=== PATIENT | female | born 1955 ===

== ENCOUNTER 2017-09-28 10:43 | Emergency (ER) | payer MEDICAID ==
[2017-09-28 10:44] VITALS: BMI 32.7
[2017-09-28 10:57] VITALS: TEMP 97.7
--- NOTE | 2017-09-28 11:15 | ED PDOC ---
Arrival/HPI - General Historian: Patient - History of Present Illness Time/Duration: 4-6 hours Symptom Onset: Sudden Symptom Course: Unchanged Quality: Aching, Stabbing Context: Sitting - General Chief Complaint: Rib Injury Time Seen by Provider: 09/28/17 10:50 - History of Present Illness Narrative History of Present Illness (Text): 09/28/17 11:12 patient is a 62F with a PMH of DM and chronic pancreatitis who comes to the ED with a CC of hitting her right side on a bed rail. She was at home babysitting her nephew when she fell over the crib and hit her right side on the bed rail. She has been complaining of pain on her right chest wall since the incident. She also states that it hurts to take a deep breath. She is not complaining of any SOB however. She states it hurts with any type of movement including twisting, bending over or walking. The patient is also complaining of pain when she lays flat. Denies any fever, chills, nausea, vomiting. (Issa Vargas) Past Medical History - Tetanus Immunization Tetanus Immunization: Unknown - Cardiac Hx Cardiac Disorders: Yes Hx Hypertension: Yes - Pulmonary Hx Respiratory Disorders: Yes Hx Asthma: Yes - Neurological Hx Neurological Disorder: No - HEENT Hx HEENT Disorder: Yes Other/Comment: HX of Tonsillectomy - Renal Hx Renal Disorder: No - Endocrine/Metabolic Hx Endocrine Disorders: Yes Hx Diabetes Mellitus Type 2: Yes - Hematological/Oncological Hx Blood Disorders: No - Integumentary Hx Dermatological Disorder: No - Musculoskeletal/Rheumatological Hx Musculoskeletal Disorders: No - Gastrointestinal Hx Gastrointestinal Disorders: Yes Hx Gall Bladder Disease: Yes Hx Gastroesophageal Reflux: Yes Hx Pancreatitis: Yes - Genitourinary/Gynecological Hx Genitourinary Disorders: Yes Other/Comment: Ectopic 1985 - Psychiatric Hx Psychophysiologic Disorder: Yes Hx Depression: Yes Hx Substance Use: No - Surgical History Hx Appendectomy: Yes (1986) Hx Cholecystectomy: Yes (01/14/14) Hx Tonsillectomy: Yes Other/Comment: Tonsillectomy 1957, endoscopy: benign growth removed, bile duct stent 12/31/13 - Anesthesia Hx Anesthesia: Yes Hx Anesthesia Reactions: No Hx Malignant Hyperthermia: No - Suicidal Assessment Feels Threatened In Home Enviroment: No Family/Social History - Physician Review Nursing Documentation Reviewed: Yes Family/Social History: Unknown Family HX Smoking Status: Former Smoker Hx Alcohol Use: No Hx Substance Use: No Hx Substance Use Treatment: No Allergies/Home Meds Allergies/Adverse Reactions: Allergies penicillin V Allergy (Verified 09/28/17 10:48) RASH fluvastatin sodium [From Lescol] Adverse Reaction (Verified 09/28/17 10:48) PAIN Home Medications: Home Meds Medication Instructions Recorded Confirmed Albuterol Sulfate [Albuterol 0.09 mg IH Q6 PRN 12/10/11 09/28/17 Sulfate Hfa] Losartan/Hydrochlorothiazide 1 tab PO DAILY 12/29/13 09/28/17 [Hyzaar 100-25 Tablet] Albuterol HFA [Ventolin HFA 90 2 puff INH Q4 07/25/15 09/28/17 mcg/actuation (8 g)] Aspirin [Aspirin Chewable] 81 mg PO DAILY 07/25/15 09/28/17 Cyclobenzaprine [Flexeril] 5 mg PO BID PRN 07/25/15 09/28/17 Gabapentin [Neurontin] 100 mg PO TID 07/25/15 09/28/17 Insulin Detemir [Levemir] 40 units SC HS 07/25/15 09/28/17 Insulin Lispro [Humalog] 20 units SC TID 07/25/15 09/28/17 Meclizine [Meclizine*] 25 mg PO BID PRN 07/25/15 09/28/17 Omeprazole [Prilosec] 20 mg PO DAILY 07/25/15 09/28/17 Review of Systems - Review of Systems Constitutional: absent: Fevers Eyes: Normal ENT: Normal Respiratory: absent: SOB Gastrointestinal: Normal Genitourinary Female: Normal Musculoskeletal: Other (Pain over her right lower ribs) Skin: Normal Neurological: Normal Endocrine: Normal Hemo/Lymphatic: Normal Psychiatric: Normal Physical Exam Vital Signs Reviewed: Yes Temperature: Afebrile Blood Pressure: Normal Pulse: Regular Respiratory Rate: Normal Appearance: Positive for: Non-Toxic, Uncomfortable Pain Distress: None Mental Status: Positive for: Alert and Oriented X 3 - Systems Exam Head: Present: Atraumatic, Normocephalic Pupils: Present: PERRL Extroacular Muscles: Present: EOMI Conjunctiva: Present: Normal Mouth: Present: Moist Mucous Membranes Neck: Present: Normal Range of Motion Respiratory/Chest: Present: Clear to Auscultation, Good Air Exchange, Tender to Palpation (tender to palpation over ribs 5-10. No abdominal tenderness. no brusing over the area. ). No: Respiratory Distress, Accessory Muscle Use Cardiovascular: Present: Regular Rate and Rhythm, Normal S1, S2. No: Murmurs Abdomen: Present: Normal Bowel Sounds. No: Tenderness, Distention, Peritoneal Signs Upper Extremity: Present: Normal Inspection. No: Cyanosis, Edema Lower Extremity: Present: Normal Inspection. No: Edema Neurological: Present: GCS=15, CN II-XII Intact, Speech Normal Skin: Present: Warm, Dry, Normal Color. No: Rashes Psychiatric: Present: Alert, Oriented x 3, Normal Insight, Normal Concentration Vital Signs Temp Pulse Resp BP Pulse Ox 09/28/17 12:12 85 17 149/80 97 09/28/17 11:53 82 17 97 09/28/17 10:48 97.7 F 89 16 151/77 H 95 Medical Decision Making ED Course and Treatment: 09/28/17 11:18 62F with fall and possible rib injury - Rib xray bilateral with PA - Tramadol for pain 09/28/17 12:02 - spoke with radiology, Possible rib fracture at rib 7 on the right - Discharge with incentive spirometry and tramadol for pain, Follow up with PMD (Issa Vargas) 09/28/17 11:18 62 yo female with right rib pain r/o fracture -- Tramadol -- Xray PROCEDURE: Radiographs of the Chest and Right Ribs. IMPRESSION: Nondisplaced right 7th rib fracture. Otherwise unremarkable study. Communication of results: I discussed findings directly with Dr. Chato Becker at 12:02. Xray report noted 1 rib fracture. No PTX. Patient improved with tramadol. She was given an incentive spirometer but stated she already had one at home. She was advised to use the spirometer at least 3 or more times a day to prevent lung consilidation/pneumonia. She was advised to follow up with her PMD. She was advised to return to the ED if symptoms worsen or any other concern. ( Chato Becker) - RAD Interpretation Radiology Orders: 09/28/17 11:25 RIBS RIGHT & PA CHEST [RAD] Stat - Medication Orders Current Medication Orders: Discontinued Medications Tramadol HCl (Ultram) 50 mg PO STAT STA Stop: 09/28/17 11:10 Last Admin: 09/28/17 11:20 Dose: 50 mg MAR Pain Assessment Document 09/28/17 11:20 SF (Rec: 09/28/17 11:51 SF [id number]) Pain Reassessment Is this a pain reassessment? Yes Sleep Is patient sleeping during reassessment? No Presence of Pain Presence of Pain Yes Pain Scale Used Pain Scale Used Numeric Location Left, Right or Bilateral Right Description Description Constant - PA / TOP TILE DECORATOR / Resident Statement MD/DO has reviewed & agrees with the documentation as recorded. MD/DO has examined the patient and agrees with the treatment plan. Disposition/Present on Arrival - Present on Arrival Any Indicators Present on Arrival: No History of DVT/PE: No History of Uncontrolled Diabetes: No Urinary Catheter: No History of Decub. Ulcer: No History Surgical Site Infection Following: None - Disposition Have Diagnosis and Disposition been Completed?: Yes Disposition Time: 12:04 Patient Plan: Discharge - Disposition Diagnosis: Rib fracture Disposition: HOME/ ROUTINE Condition: STABLE Additional Instructions: Ms. Gerard, thank you for letting us take care of you today. Your provider was Dr. Becker and Dr. Vargas. You were treated for a Rib Fracture. The emergency medical care you received today was directed at your acute symptoms. If you were prescribed any medication, please fill it and take as directed. It may take several days for your symptoms to resolve. Return to the Emergency Department if your symptoms worsen, do not improve, or if you have any other problems. Please contact your doctor or call one of the physicians/clinics you have been referred to that are listed on the Patient Visit Information form that is included in your discharge packet. Bring any paperwork you were given at discharge with you along with any medications you are taking to your follow up visit. Our treatment cannot replace ongoing medical care by a primary care provider (PCP) outside of the emergency department. Thank you for allowing the [facility] team to be part of your care today. If you had an X-Ray or CT scan: A Radiologist will review the ED reading if any change in treatment is needed we will contact you. Prescriptions: traMADol [Ultram] 50 mg PO TID PRN #15 tab PRN Reason: Pain, Moderate (4-7) Referrals: Sandra Flores V, [Primary Care Provider] - Follow up with primary Forms: [employer] ([place])
[2017-09-28 11:53] VITALS: RESP 17
--- NOTE | 2017-09-28 12:13 | RAD ---
PROCEDURE: Radiographs of the Chest and Right Ribs. HISTORY: fall, trauma to right side on bed rail COMPARISON: None available. TECHNIQUE: Frontal radiograph of the chest and multiple oblique radiographs of the right ribs were obtained. FINDINGS: RIGHT RIBS: Nondisplaced right 7th rib fracture. LUNGS: Clear. PLEURA: Seven maybe uptake has nondisplaced in atelectasis of the chest 11 chest spine that is at any time upper-outer CARDIOVASCULAR: Normal sized heart. No pulmonary vascular congestion. OTHER FINDINGS: None. IMPRESSION: Nondisplaced right 7th rib fracture. Otherwise unremarkable study. Communication of results: I discussed findings directly with Dr. Chato Becker at 12:02.
[2017-09-28 12:30] VITALS: BP 149/80; PULSE 85; O2SAT 97
== END 2017-09-28 12:14 | disposition home or self-care (01) ==
LOC: ED 10:43
DX: S22.31XA Fracture of one rib, right side, initial encounter for closed fracture (principal); W22.8XXA Striking against or struck by other objects, initial encounter; E11.9 Type 2 diabetes mellitus without complications; I10 Essential (primary) hypertension

== ENCOUNTER 2018-01-31 05:51 | Emergency (ER) | payer MEDICAID ==
[2018-01-31 05:51] VITALS: BMI 32.7
[2018-01-31 06:44] VITALS: RESP 18
[2018-01-31] MEDS ORDERED: HYDROmorphone 0.5 mg/0.5 ml ISec IVP STA (07:34)
--- NOTE | 2018-01-31 07:37 | ED PDOC ---
Arrival/HPI <Felipe Ovalle - Last Filed: 01/31/18 10:07> - General Historian: Patient - History of Present Illness Time/Duration: 24 hours Symptom Onset: Sudden Symptom Course: Worsening Quality: Aching, Cramping, Dullness Severity Level: 8 Activities at Onset: Rest <Rickey Cuadra - Last Filed: 01/31/18 14:39> - General Chief Complaint: Abdominal Pain Time Seen by Provider: 01/31/18 07:09 - History of Present Illness Narrative History of Present Illness (Text): 01/31/18 07:36 Patient is a 62 year old female with PMH of chronic pancreatitis (pt states it started after having a bad reaction to lescol), DM2, HTN, asthma, and sciatica who presents to ED for abdominal pain that started yesterday and has been worsening since around 2300 last night. She describes the pain as a dull/achy type pain, 8/10 in severity, mid-epgastric radiating to her mid-thoracic back. She states that she's had similar episodes to this about 10x in the past. She states that she has a history of chronic pancreatitis ever since starting lescol for her cholesterol about 5 years ago. She states that her PMD started her on a new cholesterol medicine, ezetimibe about 3 weeks ago. She did not start taking it until last Saturday because she went on a week long cruise 2 weeks ago and she did not want to start the new medicine until after the cruise since she had a reaction to lescol. PMH: chronic pancreatitis, DM2, HTN, sciatica, asthma PSH: c/s x 2, appendectomy, ectopic Allergies: morphine, PCN Fam Hx: HTN in mother and father, daughter has asthma Soc Hx: former smoker quit 15 years ago, denies alcohol or drug use. Currently lives at home and is independent with ADLs. Meds: reviewed with patient, see EMR (Rickey Cuadra) Past Medical History - Provider Review Nursing Documentation Reviewed: Yes - Tetanus Immunization Tetanus Immunization: Unknown - Reproductive Menopause: Yes - Cardiac Hx Cardiac Disorders: Yes Hx Hypertension: Yes - Pulmonary Hx Respiratory Disorders: Yes Hx Asthma: Yes - Neurological Hx Neurological Disorder: No - HEENT Hx HEENT Disorder: Yes Other/Comment: HX of Tonsillectomy - Renal Hx Renal Disorder: No - Endocrine/Metabolic Hx Endocrine Disorders: Yes Hx Diabetes Mellitus Type 2: Yes - Hematological/Oncological Hx Blood Disorders: No - Integumentary Hx Dermatological Disorder: No - Musculoskeletal/Rheumatological Hx Musculoskeletal Disorders: No - Gastrointestinal Hx Gastrointestinal Disorders: Yes Hx Gall Bladder Disease: Yes Hx Gastroesophageal Reflux: Yes Hx Pancreatitis: Yes - Genitourinary/Gynecological Hx Genitourinary Disorders: Yes Other/Comment: Ectopic 1985 - Psychiatric Hx Psychophysiologic Disorder: Yes Hx Depression: Yes Hx Substance Use: No - Surgical History Hx Appendectomy: Yes (1986) Hx Cholecystectomy: Yes (01/14/14) Hx Tonsillectomy: Yes Other/Comment: Tonsillectomy 1957, endoscopy: benign growth removed, bile duct stent 12/31/13 - Anesthesia Hx Anesthesia: Yes Hx Anesthesia Reactions: No Hx Malignant Hyperthermia: No - Suicidal Assessment Feels Threatened In Home Enviroment: No <Rickey Cuadra - Last Filed: 01/31/18 14:39> Family/Social History - Physician Review Nursing Documentation Reviewed: Yes Family/Social History: Hypertension, Other (daughter has asthma) Smoking Status: Former Smoker Hx Alcohol Use: No Hx Substance Use: No Hx Substance Use Treatment: No <Rickey Cuadra - Last Filed: 01/31/18 14:39> Allergies/Home Meds <Felipe Ovalle - Last Filed: 01/31/18 10:07> <Rickey Cuadra - Last Filed: 01/31/18 14:39> Allergies/Adverse Reactions: Allergies morphine Allergy (Verified 01/31/18 06:03) ITCHING Penicillins Allergy (Verified 01/31/18 06:03) ANAPHYLAXIS fluvastatin sodium [From Lescol] Adverse Reaction (Verified 09/28/17 10:48) PAIN Home Medications: Home Meds Medication Instructions Recorded Confirmed Albuterol Sulfate [Albuterol 0.09 mg IH Q6 PRN 12/10/11 01/31/18 Sulfate Hfa] Losartan/Hydrochlorothiazide 1 tab PO DAILY 12/29/13 01/31/18 [Hyzaar 100-25 Tablet] Albuterol HFA [Ventolin HFA 90 2 puff INH Q4 07/25/15 01/31/18 mcg/actuation (8 g)] Aspirin [Aspirin Chewable] 81 mg PO DAILY 07/25/15 01/31/18 Insulin Lispro [Humalog] 20 units SC TID 07/25/15 01/31/18 Omeprazole [Prilosec] 20 mg PO DAILY 07/25/15 01/31/18 Ezetimibe [Zetia] 10 mg PO DAILY 01/31/18 01/31/18 Insulin Glargine,Hum.rec.anlog 60 unit SQ HS 01/31/18 01/31/18 [Basaglar Kwikpen U-100] metFORMIN [glucOPHAGE] 500 mg PO BID 01/31/18 01/31/18 Review of Systems - Physician Review All systems were reviewed & negative as marked: Yes - Review of Systems Constitutional: absent: Fatigue, Weight Change, Fevers Eyes: absent: Vision Changes ENT: absent: Sore Throat, Rhinorrhea, Sinus Congestion Respiratory: absent: SOB, Cough, Wheezing Cardiovascular: absent: Chest Pain, Palpitations, Edema Gastrointestinal: Abdominal Pain, Nausea. absent: Stool Changes, Constipation, Diarrhea, Vomiting, Hematochezia, Hematemesis Genitourinary Female: absent: Dysuria, Frequency Musculoskeletal: Arthralgias, Back Pain. absent: Neck Pain, Joint Swelling Skin: absent: Rash, Pruritis, Skin Lesions Neurological: absent: Headache, Dizziness Endocrine: absent: Diaphoresis, Polyuria, Polydipsia Hemo/Lymphatic: absent: Adenopathy Psychiatric: absent: Anxiety, Depression <Rickey Cuadra - Last Filed: 01/31/18 14:39> Physical Exam Vital Signs Reviewed: Yes Temperature: Afebrile Blood Pressure: Normal Pulse: Regular Respiratory Rate: Normal Appearance: Positive for: Non-Toxic, Uncomfortable Pain Distress: Moderate Mental Status: Positive for: Alert and Oriented X 3 - Systems Exam Head: Present: Atraumatic, Normocephalic Pupils: Present: PERRL Extroacular Muscles: Present: EOMI Ears: Present: Normal Mouth: Present: Moist Mucous Membranes Pharnyx: Present: Normal. No: ERYTHEMA, EXUDATE, TONSILS ENLARGED Nose (External): Present: Atraumatic Neck: Present: Normal Range of Motion. No: JVD Respiratory/Chest: Present: Clear to Auscultation. No: Wheezes, Rales, Rhonchi Cardiovascular: Present: Regular Rate and Rhythm, Normal S1, S2. No: Murmurs, Rub, Gallop Abdomen: Present: Tenderness, Distention, Scars (mid-line scar from c/s and cholecystectomy). No: Peritoneal Signs, Rebound, Guarding, McBurney's Point Tender, Rovsing's Sign Present, Mass/Organomegaly Back: Present: Normal Inspection, Paraspinal Tenderness (mid-thoracic). No: CVA Tenderness Upper Extremity: Present: Normal Inspection. No: Cyanosis, Edema Lower Extremity: Present: Edema (trace pitting edema on R lower leg, pt states this is a chronic issue for her), NORMAL PULSES. No: CALF TENDERNESS, Cyanosis Neurological: Present: Speech Normal, Gait Normal Skin: Present: Warm, Dry Lymphatic: No: Cervical Adenopathy, Axillary Adenopathy Psychiatric: Present: Alert, Oriented x 3 <Rickey Cuadra - Last Filed: 01/31/18 14:39> Vital Signs Temp Pulse Resp BP Pulse Ox 01/31/18 11:57 98.2 F 78 18 145/74 98 01/31/18 11:42 98.2 F 78 18 145/74 98 01/31/18 10:29 82 18 155/79 H 97 01/31/18 09:18 86 18 143/77 96 01/31/18 06:44 89 18 149/77 97 01/31/18 06:03 98.4 F 94 H 20 171/81 H 97 Medical Decision Making <Felipe Ovalle - Last Filed: 01/31/18 10:07> - Lab Interpretations I have reviewed the lab results: Yes (mild ALT, alk phos elevation) - RAD Interpretation Investment Officer: ED Physician, Radiologist - EKG Interpretation Interpreted by ED Physician: Yes Type: 12 lead EKG Comparison: No previous EKG avail. <Rickey Cuadra - Last Filed: 01/31/18 14:39> ED Course and Treatment: 01/31/18 11:25 Patient was given 2 100mcg doses of fentanyl for pain while in the ED. Patient states that it helps with her pain a little but that it comes back. We explained to her that her abdomen/pelvis CT was negative for acute findings, including pancreatitis but there was a large amount of stool in her colon. Patient states that this has happened to her before when she is constipated. She states that she has colace and other laxatives at home and that she would be fine returning home without any additional pain medications. She states that she also has OTC ibuprofen to take if her pain worsens again. (Rickey Cuadra) - Lab Interpretations Lab Results: 01/31/18 06:38 01/31/18 06:38 Lab Results 01/31/18 08:40: Urine Color Yellow, Urine Appearance Clear, Urine pH 6.0, Ur Specific [place] 1.025, Urine Protein 30 H, Urine Glucose (UA) >=1000, Urine Ketones Negative, Urine Blood Negative, Urine Nitrate Negative, Urine Bilirubin Negative, Urine Urobilinogen 0.2, Ur Leukocyte Esterase Negative, Urine RBC Negative, Urine WBC 0 - 2, Ur Epithelial Cells 1 - 3 01/31/18 06:38: WBC 10.1 D, RBC 4.56, Hgb 11.7 L, Hct 36.5, MCV 80.0, MCH 25.7 , MCHC 32.1, RDW 15.3 H, Plt Count 291, MPV 9.2, Gran % 69.9 H, Lymph % (Auto) 22.0, Storey % (Auto) 5.9, Eos % (Auto) 2.1, Baso % (Auto) 0.1, Gran # 7.03 H, Lymph # (Auto) 2.2, Storey # (Auto) 0.6, Eos # (Auto) 0.2, Baso # (Auto) 0.01 01/31/18 06:38: Sodium 141, Potassium 3.6, Chloride 102, Carbon Dioxide 25, Anion Gap 18, BUN 28 H, Creatinine 0.7, Est GFR ( Amer) > 60, Est GFR ( Non-Af Amer) > 60, Random Glucose 137 H, Calcium 9.9, Total Bilirubin 0.5, AST 33, ALT 58 H, Alkaline Phosphatase 151 H, Total Protein 7.8, Albumin 4.5, Globulin 3.3, Albumin/Globulin Ratio 1.4 01/31/18 06:30: Lipase 260 - RAD Interpretation Narrative RAD Interpretations (Text): 01/31/18 12:13 PROCEDURE: CT Abdomen and Pelvis without intravenous contrast HISTORY: abdominal pain, hx of chronic pancreatitis COMPARISON: 07/25/2015 TECHNIQUE: Technique. Contrast dose: Radiation dose: Total exam DLP = mGy-cm. This CT exam was performed using one or more of the following dose reduction techniques: Automated exposure control, adjustment of the mA and/or kV according to patient size, and/or use of iterative reconstruction technique. FINDINGS: LOWER THORAX: Unremarkable. LIVER: Unremarkable. No gross lesion or ductal dilatation. GALLBLADDER AND BILE DUCTS: Cholecystectomy. PANCREAS: Pancreatic head atrophy. No evidence. Pancreatic fat infiltration to suggest pancreatitis. SPLEEN: Unremarkable. ADRENALS: Unremarkable. No mass. KIDNEYS AND URETERS: Small bilateral renal calcifications/ calculi. No hydronephrosis or gross mass. VASCULATURE: Unremarkable. No aortic aneurysm. BOWEL: Unremarkable. No obstruction. No gross mural thickening. APPENDIX: Unremarkable. Normal appendix. PERITONEUM: Unremarkable. No free fluid. No free air. LYMPH NODES: Unremarkable. No enlarged lymph nodes. BLADDER: Unremarkable. REPRODUCTIVE: Leiomyomatous uterus. BONES: No acute fracture. OTHER FINDINGS: Scattered surgical clips in the abdominal cavity. IMPRESSION: Pancreatic atrophy without evidence pancreatitis. Cholecystectomy. (Rickey Cuadra) Radiology Orders: 01/31/18 07:34 ABDOMEN,PELVIS W/WO CONTRAST [CT] Urgent - EKG Interpretation EKG Interpretation (Text): 01/31/18 11:27 normal sinus (Rickey Cuadra) - Medication Orders Current Medication Orders: Discontinued Medications Docusate Sodium (Colace) 100 mg PO ONCE ONE Stop: 01/31/18 10:50 Last Admin: 01/31/18 11:46 Dose: 100 mg Last Bowel Movement Document 01/31/18 11:46 SRE (Rec: 01/31/18 11:47 SRE [id number]) Last Bowel Movement Last Bowel Movement 01/31/18 Fentanyl (Fentanyl) 100 mcg IVP ONCE ONE Stop: 01/31/18 07:39 Last Admin: 01/31/18 07:52 Dose: 100 mcg [facility] Pain Assessment Document 01/31/18 07:52 SRE (Rec: 01/31/18 07:53 SRE [id number]) Pain Reassessment Is this a pain reassessment? Yes Sleep Is patient sleeping during reassessment? No Presence of Pain Presence of Pain Yes Pain Scale Used Pain Scale Used Numeric Location Pain Location Body Site Abdomen Description Description Intermittent IVP Administration Document 01/31/18 07:52 SRE (Rec: 01/31/18 07:53 SRE [id number]) Charges for Administration # of IVP Administrations 1 Re-Assess: STEPHANI Pain Assessment Document 01/31/18 08:52 SRE (Rec: 01/31/18 09:00 SRE [id number]) Pain Reassessment Is this a pain reassessment? Yes Sleep Is patient sleeping during reassessment? No Presence of Pain Presence of Pain Yes Pain Scale Used Pain Scale Used Numeric Location Pain Location Body Site Abdomen Description Description Intermittent Fentanyl (Fentanyl) 100 mcg IVP ONCE ONE Stop: 01/31/18 10:19 Last Admin: 01/31/18 10:30 Dose: 100 mcg [facility] Pain Assessment Document 01/31/18 10:30 SRE (Rec: 01/31/18 10:30 SRE [id number]) Pain Reassessment Is this a pain reassessment? Yes Sleep Is patient sleeping during reassessment? No Presence of Pain Presence of Pain Yes Pain Scale Used Pain Scale Used Numeric Location Pain Location Body Site Abdomen IVP Administration Document 01/31/18 10:30 SRE (Rec: 01/31/18 10:30 SRE [id number]) Charges for Administration # of IVP Administrations 1 Re-Assess: [facility] Pain Assessment Document 01/31/18 11:30 SRE (Rec: 01/31/18 11:47 SRE [id number]) Pain Reassessment Is this a pain reassessment? Yes Sleep Is patient sleeping during reassessment? No Presence of Pain Presence of Pain Yes Pain Scale Used Pain Scale Used Numeric Location Pain Location Body Site Abdomen Ondansetron HCl (Zofran Inj) 4 mg IVP STAT STA Stop: 01/31/18 07:44 Last Admin: 01/31/18 07:52 Dose: 4 mg IVP Administration Document 01/31/18 07:52 SRE (Rec: 01/31/18 07:52 SRE [id number]) Charges for Administration # of IVP Administrations 1 - PA / DIRECTOR OF RESEARCH CENTER / Resident Statement MD/DO has reviewed & agrees with the documentation as recorded. MD/DO has examined the patient and agrees with the treatment plan. - Scribe Statement The provider has reviewed the documentation as recorded by the Scribe <Felipe Ovalle - Last Filed: 01/31/18 10:07> <Rickey Cuadra - Last Filed: 01/31/18 14:39> - Scribe Statement Patsy Louis All medical record entries made by the Riley were at my direction and personally dictated by me. I have reviewed the chart and agree that the record accurately reflects my personal performance of the history, physical exam, medical decision making, and the department course for this patient. I have also personally directed, reviewed, and agree with the discharge instructions and disposition. (Felipe Ovalle) Disposition/Present on Arrival <Felipe Ovalle - Last Filed: 01/31/18 10:07> - Present on Arrival Any Indicators Present on Arrival: No History of DVT/PE: No History of Uncontrolled Diabetes: No Urinary Catheter: No History of Decub. Ulcer: No History Surgical Site Infection Following: None - Disposition Have Diagnosis and Disposition been Completed?: Yes Disposition Time: 14:00 Patient Plan: Discharge <Rickey Cuadra - Last Filed: 01/31/18 14:39> - Disposition Diagnosis: Chronic pancreatitis, Abdominal pain Disposition: HOME/ ROUTINE Condition: FAIR Discharge Instructions (ExitCare): Chronic Pancreatitis Additional Instructions: Please be sure to take the colace and other laxatives you have at home to help with your constipation, like we talked about. Please be sure to follow up regularly with your primary doctor. We hope that your pain improves with these treatments. As always, please return if your pain does not improve or worsens. Referrals: Sandra Flores DO [Primary Care Provider] - Follow up with primary Forms: [employer] (Ecuadorean)
[2018-01-31 07:52] LABS: BASO # 0.01 K/mm3 (0.0-2.0); BASO % 0.1 % (0.0-3.0); EOS # 0.2 (0.0-0.7); EOS % 2.1 % (1.5-5.0); GRAN # 7.03 (1.4-6.5); GRAN % 69.9 % (50.0-68.0); HEMOGLOBIN 11.7 g/dL (12.0-16.0); LYMPH # 2.2 (1.2-3.4); MEAN CORPUSCULAR HEMOGLOBIN 25.7 pg (25.0-35.0); MEAN CORPUSCULAR HGB CONC 32.1 g/dl (31.0-37.0); MEAN PLATELET VOLUME 9.2 fl (7.0-11.0); MONO # 0.6 (0.1-0.6); MONO % 5.9 % (1.0-6.0); RBC 4.56 10^6/uL (3.5-6.1); RED CELL DISTRIBUTION WIDTH 15.3 % (11.5-14.5); WHITE BLOOD COUNT 10.1 10^3/ul (4.5-11.0)
[2018-01-31 08:00] LABS: ALB/GLOB RATIO 1.4 (1.1-1.8); ALBUMIN 4.5 g/dL (3.0-4.8); ALT/SGPT 58 U/L (7-56); AST/SGOT 33 U/L (14-36); BLOOD UREA NITROGEN 28 mg/dL (7-21); CALCIUM 9.9 mg/dL (8.4-10.5); GFR AFRICAN-AMERICAN > 60; GFR NON-AFRICAN AMERICAN > 60
[2018-01-31] MEDS ORDERED: Iohexol 350 MG/100 ML VIAL ONE (08:32)
[2018-01-31 09:02] LABS: URINE BILIRUBIN NEGATIVE (NEGATIVE); URINE BLOOD NEGATIVE (NEGATIVE); URINE GLUCOSE (UA) >=1000 mg/dL (NEGATIVE); URINE LEUKOCYTE ESTERASE NEGATIVE Leu/uL (NEGATIVE); URINE PROTEIN 30 mg/dL (<30 mg/dL); URINE UROBILINOGEN 0.2 E.U./dL (<1 E.U./dL)
[2018-01-31 09:03] LABS: URINE APPEARANCE CLEAR (CLEAR); URINE COLOR YELLOW (YELLOW)
[2018-01-31 09:15] LABS: URINE RBC NEGATIVE /hpf (0-2); URINE WBC 0 - 2 /hpf (0-6)
--- NOTE | 2018-01-31 09:17 | CARD ---
APPROVED REPORT Date of service: 01/31/2018 EKG Measurement Heart [id number] <Conclusion> Normal sinus rhythm Low voltage QRS Borderline ECG
--- NOTE | 2018-01-31 11:15 | CT ---
Date of service: 01/31/2018 PROCEDURE: CT Abdomen and Pelvis without intravenous contrast HISTORY: abdominal pain, hx of chronic pancreatitis COMPARISON: 07/25/2015 TECHNIQUE: Technique. Contrast dose: Radiation dose: Total exam DLP = mGy-cm. This CT exam was performed using one or more of the following dose reduction techniques: Automated exposure control, adjustment of the mA and/or kV according to patient size, and/or use of iterative reconstruction technique. FINDINGS: LOWER THORAX: Unremarkable. LIVER: Unremarkable. No gross lesion or ductal dilatation. GALLBLADDER AND BILE DUCTS: Cholecystectomy. PANCREAS: Pancreatic head atrophy. No evidence. Pancreatic fat infiltration to suggest pancreatitis. SPLEEN: Unremarkable. ADRENALS: Unremarkable. No mass. KIDNEYS AND URETERS: Small bilateral renal calcifications/ calculi. No hydronephrosis or gross mass. VASCULATURE: Unremarkable. No aortic aneurysm. BOWEL: Unremarkable. No obstruction. No gross mural thickening. APPENDIX: Unremarkable. Normal appendix. PERITONEUM: Unremarkable. No free fluid. No free air. LYMPH NODES: Unremarkable. No enlarged lymph nodes. BLADDER: Unremarkable. REPRODUCTIVE: Leiomyomatous uterus. BONES: No acute fracture. OTHER FINDINGS: Scattered surgical clips in the abdominal cavity. IMPRESSION: Pancreatic atrophy without evidence pancreatitis. Cholecystectomy.
[2018-01-31 11:42] VITALS: BP 145/74; PULSE 78; TEMP 98.2; O2SAT 98
== END 2018-01-31 11:56 | disposition home or self-care (01) ==
LOC: ED 05:51
DX: K86.1 Other chronic pancreatitis (principal); R10.9 Unspecified abdominal pain; I10 Essential (primary) hypertension; E11.9 Type 2 diabetes mellitus without complications; Z87.891 Personal history of nicotine dependence
CPT/HCPCS: 74178; 80053; 81001; 83690; 85025; 93005; 96374; 96375; 96376; 99284; J2405; J3010; Q9967

== ENCOUNTER 2018-02-01 19:50 | Observation (INO) | payer MEDICAID ==
[2018-02-01 19:50] VITALS: BMI 32.7
[2018-02-01] MEDS ORDERED: Sodium Chloride 0.9% 1,000 ML IV STA (20:16)
--- NOTE | 2018-02-01 20:19 | ED PDOC ---
Arrival/HPI - General Chief Complaint: Abdominal Pain Time Seen by Provider: 02/01/18 19:53 Historian: Patient - History of Present Illness Narrative History of Present Illness (Text): 02/01/18 20:18 62 yo female hx of chronic pancreatitis presents with abd pain. seen yesterday dc home. neg ct yesterday. neg labs yesterday. no fevers. (+)n/v. no diarrhea Symptom Course: Unchanged Activities at Onset: Light Context: Home Past Medical History - Provider Review Nursing Documentation Reviewed: Yes - Tetanus Immunization Tetanus Immunization: Unknown - Cardiac Hx Cardiac Disorders: Yes Hx Hypertension: Yes - Pulmonary Hx Respiratory Disorders: Yes Hx Asthma: Yes - Neurological Hx Neurological Disorder: No - HEENT Hx HEENT Disorder: Yes Other/Comment: HX of Tonsillectomy - Renal Hx Renal Disorder: No - Endocrine/Metabolic Hx Endocrine Disorders: Yes Hx Diabetes Mellitus Type 2: Yes - Hematological/Oncological Hx Blood Disorders: No - Integumentary Hx Dermatological Disorder: No - Musculoskeletal/Rheumatological Hx Musculoskeletal Disorders: No - Gastrointestinal Hx Gastrointestinal Disorders: Yes Hx Gall Bladder Disease: Yes Hx Gastroesophageal Reflux: Yes Hx Pancreatitis: Yes - Genitourinary/Gynecological Hx Genitourinary Disorders: Yes Other/Comment: Ectopic 1985 - Psychiatric Hx Psychophysiologic Disorder: Yes Hx Depression: Yes Hx Substance Use: No - Surgical History Hx Appendectomy: Yes Hx Cholecystectomy: Yes Hx Tonsillectomy: Yes - Anesthesia Hx Anesthesia: Yes Hx Anesthesia Reactions: No Hx Malignant Hyperthermia: No - Suicidal Assessment Feels Threatened In Home Enviroment: No Family/Social History - Physician Review Nursing Documentation Reviewed: Yes Family/Social History: Unknown Family HX Smoking Status: Former Smoker Hx Alcohol Use: No Hx Substance Use: No Hx Substance Use Treatment: No Allergies/Home Meds Allergies/Adverse Reactions: Allergies morphine Allergy (Verified 02/01/18 20:05) ITCHING Penicillins Allergy (Verified 02/01/18 20:05) ANAPHYLAXIS fluvastatin sodium [From Lescol] Adverse Reaction (Verified 02/01/18 20:05) PAIN Home Medications: Home Meds Medication Instructions Recorded Confirmed Albuterol Sulfate [Albuterol 0.09 mg IH Q6 PRN 12/10/11 02/01/18 Sulfate Hfa] Losartan/Hydrochlorothiazide 1 tab PO DAILY 12/29/13 02/01/18 [Hyzaar 100-25 Tablet] Albuterol HFA [Ventolin HFA 90 2 puff INH Q4 07/25/15 02/01/18 mcg/actuation (8 g)] Aspirin [Aspirin Chewable] 81 mg PO DAILY 07/25/15 02/01/18 Insulin Lispro [Humalog] 20 units SC TID 07/25/15 02/01/18 Omeprazole [Prilosec] 20 mg PO DAILY 07/25/15 02/01/18 Insulin Glargine,Hum.rec.anlog 60 unit SQ HS 01/31/18 02/01/18 [Basaglar Kwikpen U-100] metFORMIN [glucOPHAGE] 500 mg PO BID 01/31/18 02/01/18 Review of Systems - Physician Review All systems were reviewed & negative as marked: Yes - Review of Systems Constitutional: Normal Eyes: Normal ENT: Normal Respiratory: Normal Cardiovascular: Normal Gastrointestinal: Abdominal Pain, Nausea, Vomiting Genitourinary Female: Normal Musculoskeletal: Normal Skin: Normal Neurological: Normal Endocrine: Normal Hemo/Lymphatic: Normal Psychiatric: Normal Physical Exam Vital Signs Reviewed: Yes Vital Signs Temp Pulse Resp BP Pulse Ox 02/01/18 20:07 98.6 F 94 H 16 164/80 H 96 Temperature: Afebrile Blood Pressure: Normal Pulse: Regular Respiratory Rate: Normal Appearance: Positive for: Well-Appearing, Non-Toxic, Comfortable Pain Distress: None Mental Status: Positive for: Alert and Oriented X 3 - Systems Exam Head: Present: Atraumatic, Normocephalic Pupils: Present: PERRL Extroacular Muscles: Present: EOMI Conjunctiva: Present: Normal Mouth: Present: Moist Mucous Membranes Neck: Present: Normal Range of Motion Respiratory/Chest: Present: Clear to Auscultation, Good Air Exchange. No: Respiratory Distress, Accessory Muscle Use Cardiovascular: Present: Regular Rate and Rhythm, Normal S1, S2. No: Murmurs Abdomen: Present: Tenderness (epigastric). No: Distention, Peritoneal Signs, Rebound, Guarding Back: Present: Normal Inspection Upper Extremity: Present: Normal Inspection. No: Cyanosis, Edema Lower Extremity: Present: Normal Inspection. No: Edema Neurological: Present: GCS=15, CN II-XII Intact, Speech Normal Skin: Present: Warm, Dry, Normal Color. No: Rashes Psychiatric: Present: Alert, Oriented x 3, Normal Insight, Normal Concentration Medical Decision Making ED Course and Treatment: ?chronic pancreatisi vs gastritis vs constipation 02/01/18 20:18 Plan: -- Labs -- Protonix Inj, IV Fluids, Toradol -- Urinalysis -- Reassess and disposition Prior Visits: Notes and results from previous visits were reviewed. Progress Notes: 02/01/18 21:51 Case discussed with certified medical coding specialist and Dr. Rodriguez who is aware and agrees with the plan Accepts patient into hospitalist service. 02/01/18 23:56 pt reassesed states pain perssitent. h/o of chronic pancreatiis ?will not elevate lipase. discussed with dr rodriguez accepts. - Lab Interpretations Lab Results: 02/01/18 21:12 02/01/18 21:12 Lab Results 02/01/18 21:12: Sodium 140, Potassium 3.4 L, Chloride 103, Carbon Dioxide 24, Anion Gap 17, BUN 19, Creatinine 0.5 L, Est GFR ( Amer) > 60, Est GFR ( Non-Af Amer) > 60, Random Glucose 162 H, Calcium 9.5, Magnesium 1.7, Total Bilirubin 0.5, AST 32, ALT 65 H, Alkaline Phosphatase 168 H, Total Protein 7.7, Albumin 4.3, Globulin 3.4, Albumin/Globulin Ratio 1.3, Lipase 209 02/01/18 21:12: PT 9.5, INR 0.84, APTT 26.6 02/01/18 21:12: WBC 10.2, RBC 4.54, Hgb 11.6 L, Hct 36.5, MCV 80.4, MCH 25.6, MCHC 31.8, RDW 15.2 H, Plt Count 263, MPV 9.2, Gran % 70.0 H, Lymph % (Auto) 22.5, [place] % (Auto) 5.3, Eos % (Auto) 2.1, Baso % (Auto) 0.1, Gran # 7.14 H, Lymph # (Auto) 2.3, [place] # (Auto) 0.5, Eos # (Auto) 0.2, Baso # (Auto) 0.01 I have reviewed the lab results: Yes - Medication Orders Current Medication Orders: Discontinued Medications Sodium Chloride (Sodium Chloride 0.9%) 1,000 mls @ 1,000 mls/hr IV .Q1H STA Stop: 02/01/18 21:15 Last Admin: 02/01/18 21:20 Dose: 1,000 mls/hr eMAR Start Stop Document 02/01/18 21:20 IT (Rec: 02/01/18 21:20 IT [id number]) Intravenous Solution Start Date 02/01/18 Start Time 21:20 End Date 02/01/18 End time 22:20 Total Infusion Time 60 Ketorolac Tromethamine (Toradol) 30 mg IVP STAT STA Stop: 02/01/18 20:17 Last Admin: 02/01/18 21:20 Dose: 30 mg MAR Pain Assessment Document 02/01/18 21:20 IT (Rec: 02/01/18 21:20 IT [id number]) Pain Reassessment Is this a pain reassessment? No Sleep Is patient sleeping during reassessment? No Presence of Pain Presence of Pain Yes Pain Scale Used Pain Scale Used Numeric Location Left, Right or Bilateral Bilateral Pain Location Body Site Abdomen IVP Administration Document 02/01/18 21:20 IT (Rec: 02/01/18 21:20 IT [id number]) Charges for Administration # of IVP Administrations 1 Ketorolac Tromethamine (Toradol) 30 mg IVP STAT STA Stop: 02/01/18 23:10 Last Admin: 02/01/18 23:20 Dose: Not Given Non-Admin Reason: Patient Refused Ondansetron HCl (Zofran Inj) 4 mg IVP STAT STA Stop: 02/01/18 23:09 Last Admin: 02/01/18 23:20 Dose: 4 mg IVP Administration Document 02/01/18 23:20 IT (Rec: 02/01/18 23:20 IT [id number]) Charges for Administration # of IVP Administrations 1 Pantoprazole Sodium (Protonix Inj) 40 mg IVP STAT STA Stop: 02/01/18 20:17 Last Admin: 02/01/18 21:20 Dose: 40 mg IVP Administration Document 02/01/18 21:20 IT (Rec: 02/01/18 21:20 IT [id number]) Charges for Administration # of IVP Administrations 1 Disposition/Present on Arrival - Present on Arrival Any Indicators Present on Arrival: No History of DVT/PE: No History of Uncontrolled Diabetes: No Urinary Catheter: No History of Decub. Ulcer: No History Surgical Site Infection Following: None - Disposition Have Diagnosis and Disposition been Completed?: Yes Diagnosis: Intractable abdominal pain Disposition: HOSPITALIZED Disposition Time: 08:00 Condition: STABLE
[2018-02-01 21:17] LABS: BASO # 0.01 K/mm3 (0.0-2.0); BASO % 0.1 % (0.0-3.0); EOS # 0.2 (0.0-0.7); EOS % 2.1 % (1.5-5.0); GRAN # 7.14 (1.4-6.5); HEMOGLOBIN 11.6 g/dL (12.0-16.0); LYMPH # 2.3 (1.2-3.4); LYMPH % 22.5 % (22.0-35.0); MEAN CELL VOLUME 80.4 fl (80.0-105.0); MEAN CORPUSCULAR HEMOGLOBIN 25.6 pg (25.0-35.0); MEAN CORPUSCULAR HGB CONC 31.8 g/dl (31.0-37.0); MEAN PLATELET VOLUME 9.2 fl (7.0-11.0); MONO # 0.5 (0.1-0.6); MONO % 5.3 % (1.0-6.0); RBC 4.54 10^6/uL (3.5-6.1); RED CELL DISTRIBUTION WIDTH 15.2 % (11.5-14.5); WHITE BLOOD COUNT 10.2 10^3/ul (4.5-11.0)
[2018-02-01 21:25] LABS: PARTIAL THROMBOPLASTIN TIME 26.6 Seconds (25.1-36.5)
[2018-02-01 21:29] LABS: INR 0.84; PROTHROMBIN TIME 9.5 SECONDS (9.4-12.5)
[2018-02-01 21:35] LABS: ALB/GLOB RATIO 1.3 (1.1-1.8); ALBUMIN 4.3 g/dL (3.0-4.8); ALT/SGPT 65 U/L (7-56); AST/SGOT 32 U/L (14-36); BLOOD UREA NITROGEN 19 mg/dL (7-21); CALCIUM 9.5 mg/dL (8.4-10.5); GFR AFRICAN-AMERICAN > 60; GFR NON-AFRICAN AMERICAN > 60; LIPASE 209 U/L (23-300)
[2018-02-02] MEDS ORDERED: HYDROmorphone 0.5 mg/0.5 ml ISec IVP STA ×2 (00:20→03:02)
--- NOTE | 2018-02-02 01:45 | CP.PCM.HP ---
<ArelyNick - Last Filed: 02/02/18 03:20> History of Present Illness - History of Present Illness History of Present Illness: Nick Mcgee D.O. PGY-1, HPI for Dr Petty Gould: Unresolved abdominal pain for more than 2 days 62 y/o female with PMH of chronic pancreatitis, DM2, HTN, asthma, and sciatica who presents to ED for 2 days h/o throbbing mid abdominal pain, 8/10, radiates to the back, no alleviating or worsening factors. Pain is associated with abdominal distention nausea, clear vomiting (NBNB) but no diarrhea. Her last bowel movement was this am, was regular, did not pass gas. Patient was seen at [facility] ED yesterday for the same reason, d/c home after receiving IVF and pain meds. Her symptoms got worse with increase of abdominal distension that feel tense. She states that she's had similar episodes with 10x admission in the past. She also have biliary stents in place. She relates chronic pancreatitis ever since starting lescol for her cholesterol about 5 years ago. Her PMD started ezetimibe about 3 weeks ago. She did not start taking it until last Saturday as she went on a cruise. Patient denied hemoptysis, hematemesis, dark stool, bleeding per rectum, fever, rash, CP, palpitation, WHITE, cough, dypnea PMH: chronic pancreatitis, DM2, HTN, sciatica, asthma PSH: c/s x 2, appendectomy, ectopic Allergies: morphine, PCN Fam Hx: HTN in mother and father, daughter has asthma Soc Hx: former smoker quit 15 years ago, denies alcohol or drug use. Currently lives at home and is independent with ADLs. Meds: reviewed with patient, see EMR Present on Admission - Present on Admission Any Indicators Present on Admission: No Review of Systems - Constitutional Constitutional: absent: Chills, Fever, Headache, Malaise, Night Sweats - EENT Eyes: absent: Change in Vision, Diplopia, Floaters Ears: absent: Decreased Hearing, Ear Pain Nose/Mouth/Throat: absent: Epistaxis, Nasal Congestion, Dry Mouth, Dysphagia - Cardiovascular Cardiovascular: Edema (right LE lymphedema). absent: Diaphoresis, Dyspnea - Respiratory Respiratory: absent: Cough, Dyspnea, Hemoptysis, Dyspnea on Exertion - Gastrointestinal Gastrointestinal: Abdominal Pain, Dyspepsia, Nausea. absent: Change in Stool Character, Diarrhea, Hematemesis, Hematochezia, Loose Stools, Melena - Genitourinary Genitourinary: absent: Flank Pain, Hematuria, Pyuria, Nocturia - Musculoskeletal Musculoskeletal: Back Pain Past Patient History - Tetanus Immunizations Tetanus Immunization: Unknown - Past Medical History & Family History Past Medical History?: Yes - Past Social History Smoking Status: Former Smoker - CARDIAC Hx Cardiac Disorders: Yes Hx Hypertension: Yes - PULMONARY Hx Respiratory Disorders: Yes Hx Asthma: Yes - NEUROLOGICAL Hx Neurological Disorder: No - HEENT Hx HEENT Problems: Yes Other/Comment: HX of Tonsillectomy - RENAL Hx Chronic Kidney Disease: No - ENDOCRINE/METABOLIC Hx Endocrine Disorders: Yes Hx Diabetes Mellitus Type 2: Yes - HEMATOLOGICAL/ONCOLOGICAL Hx Blood Disorders: No - INTEGUMENTARY Hx Dermatological Problems: No - MUSCULOSKELETAL/RHEUMATOLOGICAL Hx Musculoskeletal Disorders: No - GASTROINTESTINAL Hx Gastrointestinal Disorders: Yes Hx Gall Bladder Disease: Yes Hx Gastroesophageal Reflux: Yes Hx Pancreatitis: Yes - GENITOURINARY/GYNECOLOGICAL Hx Genitourinary Disorders: Yes Other/Comment: Ectopic 1985 - PSYCHIATRIC Hx Psychophysiologic Disorder: Yes Hx Depression: Yes Hx Substance Use: No - SURGICAL HISTORY Hx Appendectomy: Yes Hx Cholecystectomy: Yes Hx Tonsillectomy: Yes - ANESTHESIA Hx Anesthesia: Yes Hx Anesthesia Reactions: No Hx Malignant Hyperthermia: No Meds Allergies/Adverse Reactions: Allergies Allergy/AdvReac Type Severity Reaction Status Date / Time morphine Allergy ITCHING Verified 02/01/18 20:05 Penicillins Allergy ANAPHYLAXIS Verified 02/01/18 20:05 fluvastatin sodium AdvReac PAIN Verified 02/01/18 20:05 [From Lescol] Physical Exam - Constitutional Appears: Well, In Acute Distress - Head Exam Head Exam: ATRAUMATIC, NORMAL INSPECTION, NORMOCEPHALIC - Eye Exam Eye Exam: EOMI, Normal appearance, PERRL Pupil Exam: NORMAL ACCOMODATION, PERRL - ENT Exam ENT Exam: Mucous Membranes Dry, Normal Exam - Neck Exam Neck exam: Positive for: Normal Inspection. Negative for: Lymphadenopathy - Respiratory Exam Respiratory Exam: Clear to Auscultation Bilateral, NORMAL BREATHING PATTERN - Cardiovascular Exam Cardiovascular Exam: REGULAR RHYTHM, +S1, +S2 - GI/Abdominal Exam GI & Abdominal Exam: Distended, Guarding, Normal Bowel Sounds, Tenderness - Extremities Exam Extremities exam: Negative for: calf tenderness, pedal edema - Expanded Lower Extremities Exam Right Lower Leg Exam: swelling (RIGHT LL LYPHEDEMA) - Back Exam Back exam: NORMAL INSPECTION. absent: CVA tenderness (L), CVA tenderness (R) - Neurological Exam Neurological exam: Alert, CN II-XII Intact, Oriented x3 - Psychiatric Exam Psychiatric exam: Normal Affect, Normal Mood - Skin Skin Exam: Dry, Intact, Normal Color, Warm Results - Vital Signs Recent Vital Signs: Last Vital Signs Temp 98.5 F 02/02/18 00:30 Pulse 76 02/02/18 00:30 Resp 20 02/02/18 00:30 BP 139/68 02/02/18 00:30 Pulse Ox 96 02/02/18 00:30 - Labs Result Diagrams: 02/01/18 21:12 02/01/18 21:12 Assessment & Plan - Assessment and Plan (Free Text) Assessment: 62 y/o female with PMH of chronic pancreatitis, HTN, asthma, and sciatica placed in obs for 2 days h/o N/V and throbbing mid abdominal pain, radiates to her back. 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 Hypokalemia Possibly 2/2 recurrent emesis Repleted with 20 mEq IV Started NS +40mEq KCl @120 ml/hr Will recheck in AM 3. DM2 On basalglar 60 at night with lispro 20 AC, halved doses given NPO and will hold AC insulin Added RISS med Start Accu check Maintain glycemic conrtol 4. Hx HTN On losartan/HCTZ 100-25 at home Will re-start once tolerating PO, hold for now Start PRN hydralazine for SBP >160/DBP >90 On ASA 81 at home, will hold for now 5. Hx HLD Hold statin at this time given NPO 6. Hx Asthma Asaymptomatic at this time Started Duoneb prn SOB NC O2 @2L prn GI/DVT ppx: protonix/SCDs (Noy of 1) Patient was seen and examined and case was discussed at length with attending physician Dr. Dove. - Date & Time Date: 02/02/18 Time: 02:14 <Ricardo Dove - Last Filed: 02/02/18 04:43> Results - Vital Signs Recent Vital Signs: Last Vital Signs Temp 98.5 F 02/02/18 03:23 Pulse 76 02/02/18 03:23 Resp 20 02/02/18 03:23 BP 139/68 02/02/18 03:23 Pulse Ox 95 02/02/18 02:53 - Labs Result Diagrams: 02/01/18 21:12 02/01/18 21:12 Attending/Attestation - Attestation I have personally seen and examined this patient.: Yes I have fully participated in the care of the patient.: Yes I have reviewed all pertinent clinical information: Yes Notes (Text): 02/02/18 04:33 [facility] ER. Medical record was reviewed. Agree with history, physical examination, assessment and plan. Following should be noted. CC:Abd pain-Epigastric and LUQ,10/10,achey,throbbing, had chills yesterday. CT-Pancreatic atrophy. Was in the ER day before. ROS:Gained 10 lb in one year. Has back pain sometimes. Has left sided sciatic pain. Wears reading glasses. She was told 2 years ago that she had pericarditis . She states that she had stent palced in bile duct and was removed. Hgb 11.6 Coag-NAD CMP- k 3.4,Cr0.5,gl162, ALT65,Apo4 168, Amylase normal. PMH:DM HTN Ch pancreatitis.x 10. HLD Diverticulitis Asthma Laparotomy cholecystectomy Appendectomy Ectopic Allergies:Fluvastatin,PCN Former smoker.-Quit 15 years ago,smoked 1/2 PPD for 10 years. On statin for 2 years
[2018-02-02] MEDS ORDERED: Sodium Chloride 0.9% 1,000 ML IV SCH (03:45)
[2018-02-02] MEDS: HYDROmorphone 0.5 mg/0.5 ml ISec IVP PRN ×4 (06:38→20:13)
[2018-02-02] MEDS ORDERED: Insulin Lispro 1 UNITS/0.01 ML SC SCH (07:30)
[2018-02-02 08:04] LABS: BASO # 0.01 K/mm3 (0.0-2.0); BASO % 0.1 % (0.0-3.0); EOS # 0.2 (0.0-0.7); EOS % 2.3 % (1.5-5.0); GRAN # 6.02 (1.4-6.5); GRAN % 69.5 % (50.0-68.0); LYMPH # 1.8 (1.2-3.4); LYMPH % 21.1 % (22.0-35.0); MEAN CELL VOLUME 80.9 fl (80.0-105.0); MEAN CORPUSCULAR HEMOGLOBIN 25.9 pg (25.0-35.0); MEAN CORPUSCULAR HGB CONC 32.1 g/dl (31.0-37.0); MEAN PLATELET VOLUME 9.2 fl (7.0-11.0); MONO # 0.6 (0.1-0.6); RBC 4.24 10^6/uL (3.5-6.1); RED CELL DISTRIBUTION WIDTH 15.4 % (11.5-14.5); WHITE BLOOD COUNT 8.7 10^3/ul (4.5-11.0)
[2018-02-02] MEDS: Insulin Reg-MEDIUM-Coverage SC SCH ×4 (08:08→22:44)
[2018-02-02 08:35] LABS: ALB/GLOB RATIO 1.3 (1.1-1.8); ALBUMIN 3.9 g/dL (3.0-4.8); ALT/SGPT 79 U/L (7-56); AST/SGOT 58 U/L (14-36); BLOOD UREA NITROGEN 14 mg/dL (7-21); GFR AFRICAN-AMERICAN > 60; GFR NON-AFRICAN AMERICAN > 60
--- NOTE | 2018-02-02 14:18 | CP.PCM.CON ---
<Phillip Garcia - Last Filed: 02/02/18 14:12> History of Present Illness - History of Present Illness History of Present Illness: PGY6 GI Fellow Consult Note Patient is a 62yo female with PMHx significant for pancreatitis, DMT2, HTN, asthma who presented to the ED with complaint of abdominal pain. Patient recently returned from a cruise one week prior to admission. Four days prior to admission, patient suddenly awoke with epigastric pain radiating to the back and abdominal distention/fullness. Symptoms worsened in the days that followed and she developed nausea and vomiting. States that she ate outside of the home on both Saturday and of this week. No sick contacts that she is aware of. Admits that she recently began use of Ezetimibe last Saturday and claims she had to be taken off of Fluvastatin previously for development of pancreatitis. Currently, pain is 8/10 and mostly characterized by bloating/ fullness. Denies rectal bleeding, weight loss. 12 system ROS performed and otherwise unremarkable PMHx: See HPI PSHx: , appendectomy, cholecytectomy, ectopic FHx; Asthma Social: Former smoker (quit >10 year ago), denies EtOH or illicit drug use Endo: 1.5 years ago at [facility] with Dr Felton Past Patient History - Tetanus Immunizations Tetanus Immunization: Unknown - Past Medical History & Family History Past Medical History?: Yes - Past Social History Smoking Status: Former Smoker - CARDIAC Hx Cardiac Disorders: Yes Hx Hypertension: Yes - PULMONARY Hx Respiratory Disorders: Yes Hx Asthma: Yes - NEUROLOGICAL Hx Neurological Disorder: No - HEENT Hx HEENT Problems: Yes Other/Comment: HX of Tonsillectomy - RENAL Hx Chronic Kidney Disease: No - ENDOCRINE/METABOLIC Hx Endocrine Disorders: Yes Hx Diabetes Mellitus Type 2: Yes - HEMATOLOGICAL/ONCOLOGICAL Hx Blood Disorders: No - INTEGUMENTARY Hx Dermatological Problems: No - MUSCULOSKELETAL/RHEUMATOLOGICAL Hx Musculoskeletal Disorders: No - GASTROINTESTINAL Hx Gastrointestinal Disorders: Yes Hx Gall Bladder Disease: Yes Hx Gastroesophageal Reflux: Yes Hx Pancreatitis: Yes - GENITOURINARY/GYNECOLOGICAL Hx Genitourinary Disorders: Yes Other/Comment: Ectopic 1985 - PSYCHIATRIC Hx Psychophysiologic Disorder: Yes Hx Depression: Yes Hx Substance Use: No - SURGICAL HISTORY Hx Appendectomy: Yes Hx Cholecystectomy: Yes Hx Tonsillectomy: Yes - ANESTHESIA Hx Anesthesia: Yes Hx Anesthesia Reactions: No Hx Malignant Hyperthermia: No Meds Allergies/Adverse Reactions: Allergies Allergy/AdvReac Type Severity Reaction Status Date / Time morphine Allergy ITCHING Verified 02/01/18 20:05 Penicillins Allergy ANAPHYLAXIS Verified 02/01/18 20:05 fluvastatin sodium AdvReac PAIN Verified 02/01/18 20:05 [From [facility]] - Medications Medications: Current Medications Hydralazine HCl (Apresoline) 10 mg IVP Q6 PRN PRN Reason: SBP>160 and/or DBP>90 Hydromorphone HCl (Dilaudid) 0.5 mg IVP Q6H PRN PRN Reason: Pain, severe (8-10) Last Admin: 02/02/18 13:59 Dose: 0.5 mg Potassium Chloride 40 meq/ (Sodium Chloride) 1,020 mls @ 250 mls/hr IV .Q4H5M [facility] Insulin Human Lispro (Humalog) 10 units SC AC [facility] Insulin Human Regular (Humulin R Med) 0 units SC ACHS [facility] PRN Reason: Protocol Last Admin: 02/02/18 11:41 Dose: Not Given Ondansetron HCl (Zofran Inj) 4 mg IVP Q6H PRN PRN Reason: Nausea/Vomiting Last Admin: 02/02/18 09:26 Dose: 4 mg Pantoprazole Sodium (Protonix Inj) 40 mg IVP DAILY [facility] Physical Exam - Constitutional Appears: No Acute Distress, Other (obese) - Eye Exam Eye Exam: EOMI, PERRL - ENT Exam ENT Exam: Mucous Membranes Moist - Respiratory Exam Respiratory Exam: Clear to Auscultation Bilateral. absent: Rales, Rhonchi, Wheezes - Cardiovascular Exam Cardiovascular Exam: RRR, +S1, +S2 - GI/Abdominal Exam GI & Abdominal Exam: Distended, Normal Bowel Sounds, Soft, Tenderness ( epigastric, mid-abdominal). absent: Firm, Guarding, Organomegaly, Rigid - Extremities Exam Extremities exam: Positive for: normal inspection. Negative for: pedal edema - Neurological Exam Neurological exam: Alert, Oriented x3 - Psychiatric Exam Psychiatric exam: Anxious, Normal Affect - Skin Skin Exam: Dry, Warm Results - Vital Signs Recent Vital Signs: Last Vital Signs Temp 98.3 F 02/02/18 08:42 Pulse 77 02/02/18 08:42 Resp 20 02/02/18 08:42 BP 123/60 02/02/18 08:42 Pulse Ox 97 02/02/18 08:42 - Labs Result Diagrams: 02/02/18 07:30 02/02/18 07:30 Labs: Laboratory Results - last 24 hr 02/02/18 02/02/18 07:30 07:30 WBC 8.7 RBC 4.24 Hgb 11.0 L Hct 34.3 L MCV 80.9 MCH 25.9 MCHC 32.1 RDW 15.4 H Plt Count 222 MPV 9.2 Gran % 69.5 H Lymph % (Auto) 21.1 L Hartley % (Auto) 7.0 H Eos % (Auto) 2.3 Baso % (Auto) 0.1 Gran # 6.02 Lymph # (Auto) 1.8 Hartley # (Auto) 0.6 Eos # (Auto) 0.2 Baso # (Auto) 0.01 Sodium 141 Potassium 4.1 Chloride 105 Carbon Dioxide 26 Anion Gap 14 BUN 14 Creatinine 0.5 L Est GFR ( Amer) > 60 Est GFR (Non-Af Amer) > 60 Random Glucose 120 H Calcium 9.0 Phosphorus 3.3 Magnesium 1.7 Total Bilirubin 0.7 AST 58 H D ALT 79 H Alkaline Phosphatase 139 H Total Protein 7.0 Albumin 3.9 Globulin 3.0 Albumin/Globulin Ratio 1.3 Assessment & Plan - Assessment and Plan (Free Text) Assessment: Patient is a 62yo female with PMHx significant for pancreatitis, DMT2, HTN, asthma who presented to the ED with complaint of abdominal pain -Abdominal pain, favor diagnosis of gastroparesis or severe constipation vs pancreatitis -Constipation -DMT2 -HTN Plan: -CT from 01/31/18 noted, significant stool burden noted -Recommend aggressive bowel regimen - start with Miralax 17g PO BID and consider addition of one time dose Dulcolax or tap water enemas -Use Reglan 10mg IVP ACHS for 3 doses -Liquid diet as tolerated -Consider outpatient follow up and EUS -Triglycerides never significantly elevated previously -Can consider checking IgG4 if pancreatitis suspected - Date & Time Date: 02/02/18 Time: 09:00 <Anu Falcon V - Last Filed: 02/03/18 00:07> Meds - Medications Medications: Current Medications Hydralazine HCl (Apresoline) 10 mg IVP Q6 PRN PRN Reason: SBP>160 and/or DBP>90 Hydromorphone HCl (Dilaudid) 0.5 mg IVP Q6H PRN PRN Reason: Pain, severe (8-10) Last Admin: 02/02/18 20:13 Dose: 0.5 mg Potassium Chloride 40 meq/ (Sodium Chloride) 1,020 mls @ 250 mls/hr IV .Q4H5M [facility] Last Admin: 02/02/18 16:03 Dose: 250 mls/hr Insulin Human Lispro (Humalog) 10 units SC [facility] Insulin Human Regular (Humulin R Med) 0 units SC [facility] PRN Reason: Protocol Last Admin: 02/02/18 16:11 Dose: Not Given Metoclopramide HCl (Reglan) 10 mg IVP [facility] Stop: 02/03/18 07:31 Last Admin: 02/02/18 16:04 Dose: Not Given Ondansetron HCl (Zofran Inj) 4 mg IVP Q6H PRN PRN Reason: Nausea/Vomiting Last Admin: 02/02/18 09:26 Dose: 4 mg Pantoprazole Sodium (Protonix Inj) 40 mg IVP DAILY [facility] Last Admin: 02/02/18 10:48 Dose: 40 mg Polyethylene Glycol (Miralax) 17 gm PO BID [facility] Last Admin: 02/02/18 18:05 Dose: 17 gm Results - Vital Signs Recent Vital Signs: Last Vital Signs Temp 98.2 F 02/02/18 16:33 Pulse 77 02/02/18 16:33 Resp 20 02/02/18 16:33 BP 139/53 L 02/02/18 16:33 Pulse Ox 93 L 02/02/18 16:33 - Labs Result Diagrams: 02/02/18 07:30 02/02/18 07:30 Labs: Laboratory Results - last 24 hr 02/02/18 02/02/18 07:30 07:30 WBC 8.7 RBC 4.24 Hgb 11.0 L Hct 34.3 L MCV 80.9 MCH 25.9 MCHC 32.1 RDW 15.4 H Plt Count 222 MPV 9.2 Gran % 69.5 H Lymph % (Auto) 21.1 L Hartley % (Auto) 7.0 H Eos % (Auto) 2.3 Baso % (Auto) 0.1 Gran # 6.02 Lymph # (Auto) 1.8 Hartley # (Auto) 0.6 Eos # (Auto) 0.2 Baso # (Auto) 0.01 Sodium 141 Potassium 4.1 Chloride 105 Carbon Dioxide 26 Anion Gap 14 BUN 14 Creatinine 0.5 L Est GFR ( Amer) > 60 Est GFR (Non-Af Amer) > 60 Random Glucose 120 H Calcium 9.0 Phosphorus 3.3 Magnesium 1.7 Total Bilirubin 0.7 AST 58 H D ALT 79 H Alkaline Phosphatase 139 H Total Protein 7.0 Albumin 3.9 Globulin 3.0 Albumin/Globulin Ratio 1.3 Attending/Attestation - Attestation I have personally seen and examined this patient.: Yes I have fully participated in the care of the patient.: Yes I have reviewed all pertinent clinical information: Yes Notes (Text): Admitted with a acute onset of abdominal pain started 2 days ago progressively getting worse unable to keep food down Pain is mainly in the right sided PICC in the epigastric area History of pancreatitis recurrent Status post cholecystectomy status post ERCP stent placement and removal Gastroparesis should be considered as a differential diagnosis with a gastric bezoar If the patient remains symptomatic we will consider Further workup including MRI with MRCP 02/03/18 00:07
[2018-02-02] MEDS: POLYETHYLENE GLYCOL 3350 17 GM/Dose PACKET PO SCH (18:05)
[2018-02-02] MEDS ORDERED: Insulin Detemir 100 units/ml Vial (Levemir) SC SCH (22:00)
[2018-02-03] MEDS: HYDROmorphone 0.5 mg/0.5 ml ISec IVP PRN ×3 (05:00→17:03)
--- NOTE | 2018-02-03 06:47 | CP.PCM.PN ---
Subjective - Date & Time of Evaluation Date of Evaluation: 02/03/18 Time of Evaluation: 06:47 - Subjective Subjective: # 24 angiocath was inserted in left hand. Objective - Vital Signs/Intake and Output Vital Signs (last 24 hours): Temp Pulse Resp BP Pulse Ox 98.2 F 77 20 139/53 L 93 L 02/02/18 16:33 02/02/18 16:33 02/02/18 16:33 02/02/18 16:33 02/02/18 16:33 Intake and Output: 02/02/18 02/03/18 18:59 06:59 Intake Total 780 Balance 780 - Medications Medications: Current Medications Hydralazine HCl (Apresoline) 10 mg IVP Q6 PRN PRN Reason: SBP>160 and/or DBP>90 Hydromorphone HCl (Dilaudid) 0.5 mg IVP Q6H PRN PRN Reason: Pain, severe (8-10) Last Admin: 02/03/18 05:00 Dose: 0.5 mg Potassium Chloride 40 meq/ (Sodium Chloride) 1,020 mls @ 250 mls/hr IV .Q4H5M [facility] Last Admin: 02/02/18 16:03 Dose: 250 mls/hr Insulin Human Lispro (Humalog) 10 units SC [facility] Insulin Human Regular (Humulin R Med) 0 units SC [facility] PRN Reason: Protocol Last Admin: 02/02/18 22:44 Dose: Not Given Metoclopramide HCl (Reglan) 10 mg IVP [facility] Stop: 02/03/18 07:31 Last Admin: 02/02/18 16:04 Dose: Not Given Ondansetron HCl (Zofran Inj) 4 mg IVP Q6H PRN PRN Reason: Nausea/Vomiting Last Admin: 02/02/18 09:26 Dose: 4 mg Pantoprazole Sodium (Protonix Inj) 40 mg IVP DAILY [facility] Last Admin: 02/02/18 10:48 Dose: 40 mg Polyethylene Glycol (Miralax) 17 gm PO BID [facility] Last Admin: 02/02/18 18:05 Dose: 17 gm - Labs Labs: 02/02/18 07:30 02/02/18 07:30 PT 9.5 SECONDS (9.4-12.5) 02/01/18 21:12 INR 0.84 02/01/18 21:12 APTT 26.6 Seconds (25.1-36.5) 02/01/18 21:12
--- NOTE | 2018-02-03 07:31 | CP.PCM.PN ---
<Sushil Govea - Last Filed: 02/03/18 14:56> Subjective - Date & Time of Evaluation Date of Evaluation: 02/03/18 Time of Evaluation: 07:31 - Subjective Subjective: Sushil Govea PGY1 Progress Note for Dr. Christiansen 62F seen and evaluated at bedside this morning. Patient states the pain has improved today with no nausea or vomiting. She is tolerating her diet and is requesting more food. She is ambulating. Patient had a bowel movement this morning. She feels ready to go home. Denies fever, chills, diarrhea, shortness of breath, chest pain, palpitations, headache, dizziness, or urinary symptoms. Objective - Vital Signs/Intake and Output Vital Signs (last 24 hours): Temp Pulse Resp BP Pulse Ox 98.2 F 77 20 139/53 L 93 L 02/02/18 16:33 02/02/18 16:33 02/02/18 16:33 02/02/18 16:33 02/02/18 16:33 Intake and Output: 02/03/18 02/03/18 06:59 18:59 Intake Total 780 Balance 780 - Medications Medications: Current Medications Hydralazine HCl (Apresoline) 10 mg IVP Q6 PRN PRN Reason: SBP>160 and/or DBP>90 Hydromorphone HCl (Dilaudid) 0.5 mg IVP Q6H PRN PRN Reason: Pain, severe (8-10) Last Admin: 02/03/18 05:00 Dose: 0.5 mg Potassium Chloride 40 meq/ (Sodium Chloride) 1,020 mls @ 250 mls/hr IV .Q4H5M [facility] Last Admin: 02/02/18 16:03 Dose: 250 mls/hr Insulin Human Lispro (Humalog) 10 units SC AC [facility] Insulin Human Regular (Humulin R Med) 0 units SC ACHS [facility] PRN Reason: Protocol Last Admin: 02/02/18 22:44 Dose: Not Given Ondansetron HCl (Zofran Inj) 4 mg IVP Q6H PRN PRN Reason: Nausea/Vomiting Last Admin: 02/02/18 09:26 Dose: 4 mg Pantoprazole Sodium (Protonix Inj) 40 mg IVP DAILY [facility] Last Admin: 02/02/18 10:48 Dose: 40 mg Polyethylene Glycol (Miralax) 17 gm PO BID [facility] Last Admin: 02/02/18 18:05 Dose: 17 gm - Labs Labs: 02/02/18 07:30 02/02/18 07:30 PT 9.5 SECONDS (9.4-12.5) 02/01/18 21:12 INR 0.84 02/01/18 21:12 APTT 26.6 Seconds (25.1-36.5) 02/01/18 21:12 - Constitutional Appears: Well, Non-toxic, No Acute Distress - Head Exam Head Exam: ATRAUMATIC, NORMAL INSPECTION, NORMOCEPHALIC - Eye Exam Eye Exam: EOMI Pupil Exam: PERRL - Respiratory Exam Respiratory Exam: Clear to Ausculation Bilateral, NORMAL BREATHING PATTERN - Cardiovascular Exam Cardiovascular Exam: REGULAR RHYTHM, +S1, +S2. absent: Murmur - GI/Abdominal Exam GI & Abdominal Exam: Soft, Tenderness. absent: Distended, Guarding, Rebound - Neurological Exam Neurological Exam: Alert, Awake, Oriented x3 - Psychiatric Exam Psychiatric exam: Normal Affect, Normal Mood Assessment and Plan - Assessment and Plan (Free Text) Assessment: 62F with PMH of chronic pancreatitis, hypertension, asthma, DM, sciatica presented with epigastric abdominal pain radiating to the back, nausea and vomiting. CT scan of the abdomen/pelvis shows pancreatic atrophy without evidence of pancreatitis. Patient admitted for chronic pancreatitis vs. gastroparesis. Plan: 1. Abdominal Pain - Likely due to chronic pancreatitis vs. gastroparesis vs. severe constipation - CT Abd/Pel (01/31): pancreatic atrophy without evidence of pancreatitis - Dilaudid 0.5mg IV Q6 - Zofran 4mg IV Q6 - Protonix 40mg IV QD - GI recommendations: Advance to diabetic diet today, continue Miralax 17g PO BID, Reglan 10mg IVP, outpatient follow-up and EUS 2. Diabetes Mellitus Type 2 - ISS - Accuchecks - Will continue home medications if patient tolerates diet 3. History of HTN - On losartan/HCTZ 100-25 at home - Will re-start once tolerating PO, hold for now - PRN hydralazine for SBP >160/DBP >90 - On ASA 81 at home, will hold for now 4. History of HLD - Continue with statin 5. History of Asthma - Asymptomatic at this time - Started Duoneb PRN GI PPX: Protonix DVT PPX: SCDs Diet: Diabetic Patient was seen and examined and case was discussed at length with attending physician Dr. Christiansen. Sushil Govea PGY1 <Rosemary Christiansen - Last Filed: 02/03/18 17:03> Objective - Vital Signs/Intake and Output Vital Signs (last 24 hours): Temp Pulse Resp BP Pulse Ox 98.4 F 70 18 139/81 94 L 02/03/18 14:00 02/03/18 14:00 02/03/18 14:00 02/03/18 14:00 02/03/18 14:00 Intake and Output: 02/03/18 02/03/18 06:59 18:59 Intake Total 780 600 Balance 780 600 - Medications Medications: Current Medications Hydralazine HCl (Apresoline) 10 mg IVP Q6 PRN PRN Reason: SBP>160 and/or DBP>90 Hydromorphone HCl (Dilaudid) 0.5 mg IVP Q6H PRN PRN Reason: Pain, severe (8-10) Last Admin: 02/03/18 11:02 Dose: 0.5 mg Potassium Chloride 40 meq/ (Sodium Chloride) 1,020 mls @ 250 mls/hr IV .Q4H5M [facility] Last Admin: 02/02/18 16:03 Dose: 250 mls/hr Insulin Human Lispro (Humalog) 10 units SC AC [facility] Insulin Human Regular (Humulin R Med) 0 units SC ACHS [facility] PRN Reason: Protocol Last Admin: 02/03/18 16:42 Dose: Not Given Ondansetron HCl (Zofran Inj) 4 mg IVP Q6H PRN PRN Reason: Nausea/Vomiting Last Admin: 02/02/18 09:26 Dose: 4 mg Pantoprazole Sodium (Protonix Inj) 40 mg IVP DAILY [facility] Last Admin: 02/03/18 10:13 Dose: 40 mg Polyethylene Glycol (Miralax) 17 gm PO BID [facility] Last Admin: 02/03/18 10:14 Dose: 17 gm - Labs Labs: 02/02/18 07:30 02/03/18 07:30 PT 9.5 SECONDS (9.4-12.5) 02/01/18 21:12 INR 0.84 02/01/18 21:12 APTT 26.6 Seconds (25.1-36.5) 02/01/18 21:12 Attending/Attestation - Attestation I have personally seen and examined this patient.: Yes I have fully participated in the care of the patient.: Yes I have reviewed all pertinent clinical information, including history, physical exam and plan: Yes Notes (Text): 02/03/18 17:02 Attending note; Patient seen and examined with resident. Patient is a 62 year old female with PMH of chronic pancreatitis, hypertension, asthma, DM, sciatica presented with epigastric abdominal pain radiating to the back, nausea and vomiting. CT scan of the abdomen/pelvis shows pancreatic atrophy without evidence of pancreatitis. Patient admitted for chronic pancreatitis vs. gastroparesis. Advised small frequent meals to avoid gastroparesis. Currently tolerating diet. Advance to full liquid diet. GI evaluation with Dr. Falcon appreciated. Upon discharge the patient will follow-up with PMD .
[2018-02-03 08:12] LABS: ALB/GLOB RATIO 1.3 (1.1-1.8); ALBUMIN 3.9 g/dL (3.0-4.8); ALT/SGPT 82 U/L (7-56); AST/SGOT 44 U/L (14-36); BLOOD UREA NITROGEN 9 mg/dL (7-21); CALCIUM 9.2 mg/dL (8.4-10.5); GFR AFRICAN-AMERICAN > 60; GFR NON-AFRICAN AMERICAN > 60
[2018-02-03] MEDS: Insulin Reg-MEDIUM-Coverage SC SCH ×3 (08:17→16:42)
--- NOTE | 2018-02-03 08:24 | CP.PCM.PN ---
<Sherin Lovett - Last Filed: 02/03/18 08:21> Subjective - Date & Time of Evaluation Date of Evaluation: 02/03/18 Time of Evaluation: 08:00 - Subjective Subjective: GI Fellow PGY5 Progress Note Pt seen and evaluated at bedside, pt reports feeling better and reports she is ready to go home. Abdominal pain is improved and had 2BM yesterday. Tolerating liquid diet, requesting advancing diet. ROS: A 12pt ROS was negative except as above. Objective - Vital Signs/Intake and Output Vital Signs (last 24 hours): Temp Pulse Resp BP Pulse Ox 98.2 F 77 20 139/53 L 93 L 02/02/18 16:33 02/02/18 16:33 02/02/18 16:33 02/02/18 16:33 02/02/18 16:33 Intake and Output: 02/03/18 02/03/18 06:59 18:59 Intake Total 780 Balance 780 - Medications Medications: Current Medications Hydralazine HCl (Apresoline) 10 mg IVP Q6 PRN PRN Reason: SBP>160 and/or DBP>90 Hydromorphone HCl (Dilaudid) 0.5 mg IVP Q6H PRN PRN Reason: Pain, severe (8-10) Last Admin: 02/03/18 05:00 Dose: 0.5 mg Potassium Chloride 40 meq/ (Sodium Chloride) 1,020 mls @ 250 mls/hr IV .Q4H5M [facility] Last Admin: 02/02/18 16:03 Dose: 250 mls/hr Insulin Human Lispro (Humalog) 10 units SC AC [facility] Insulin Human Regular (Humulin R Med) 0 units SC ACHS [facility] PRN Reason: Protocol Last Admin: 02/03/18 08:17 Dose: Not Given Ondansetron HCl (Zofran Inj) 4 mg IVP Q6H PRN PRN Reason: Nausea/Vomiting Last Admin: 02/02/18 09:26 Dose: 4 mg Pantoprazole Sodium (Protonix Inj) 40 mg IVP DAILY [facility] Last Admin: 02/02/18 10:48 Dose: 40 mg Polyethylene Glycol (Miralax) 17 gm PO BID [facility] Last Admin: 02/02/18 18:05 Dose: 17 gm - Labs Labs: 02/02/18 07:30 02/03/18 07:30 PT 9.5 SECONDS (9.4-12.5) 02/01/18 21:12 INR 0.84 02/01/18 21:12 APTT 26.6 Seconds (25.1-36.5) 02/01/18 21:12 - Constitutional Appears: Non-toxic, No Acute Distress - Head Exam Head Exam: ATRAUMATIC, NORMAL INSPECTION, NORMOCEPHALIC - Eye Exam Eye Exam: EOMI, Normal appearance, PERRL Pupil Exam: PERRL - ENT Exam ENT Exam: Mucous Membranes Moist, Normal Exam - Neck Exam Neck Exam: Full ROM, Normal Inspection - Respiratory Exam Respiratory Exam: Clear to Ausculation Bilateral, NORMAL BREATHING PATTERN - Cardiovascular Exam Cardiovascular Exam: REGULAR RHYTHM, RRR, +S1, +S2 - GI/Abdominal Exam GI & Abdominal Exam: Soft, Normal Bowel Sounds. absent: Distended, Guarding, Tenderness, Organomegaly - Rectal Exam Rectal Exam: Deferred - Extremities Exam Extremities Exam: Full ROM, Normal Inspection - Neurological Exam Neurological Exam: Alert, Awake, Oriented x3 - Psychiatric Exam Psychiatric exam: Normal Affect, Normal Mood - Skin Skin Exam: Dry, Intact, Normal Color, Warm Assessment and Plan - Assessment and Plan (Free Text) Assessment: Patient is a 62yo female with PMHx significant for pancreatitis, DMT2, HTN, asthma who presented to the ED with complaint of abdominal pain. 1. Abdominal pain 2. Gastroparesis 3. Hx of pancreatitis 4. Constipation Plan: -Continue supportive care and pain control -CT from 01/31/18 with significant stool burden -Continue aggressive bowel regimen with Miralax 17g PO BID -Advance diet as tolerated -Consider outpatient follow up and EUS -Clinically improved, she can followup as an outpt with GI <Anu Falcon V - Last Filed: 02/03/18 19:27> Objective - Vital Signs/Intake and Output Vital Signs (last 24 hours): Temp Pulse Resp BP Pulse Ox 98.4 F 70 18 139/81 94 L 02/03/18 14:00 02/03/18 14:00 02/03/18 14:00 02/03/18 14:00 02/03/18 14:00 Intake and Output: 02/03/18 02/04/18 18:59 06:59 Intake Total 600 Balance 600 - Medications Medications: Current Medications Hydralazine HCl (Apresoline) 10 mg IVP Q6 PRN PRN Reason: SBP>160 and/or DBP>90 Hydromorphone HCl (Dilaudid) 0.5 mg IVP Q6H PRN PRN Reason: Pain, severe (8-10) Last Admin: 02/03/18 17:03 Dose: 0.5 mg Potassium Chloride 40 meq/ (Sodium Chloride) 1,020 mls @ 250 mls/hr IV .Q4H5M [facility] Last Admin: 02/02/18 16:03 Dose: 250 mls/hr Insulin Human Lispro (Humalog) 10 units SC AC [facility] Insulin Human Regular (Humulin R Med) 0 units SC ACHS [facility] PRN Reason: Protocol Last Admin: 02/03/18 16:42 Dose: Not Given Ondansetron HCl (Zofran Inj) 4 mg IVP Q6H PRN PRN Reason: Nausea/Vomiting Last Admin: 02/02/18 09:26 Dose: 4 mg Pantoprazole Sodium (Protonix Inj) 40 mg IVP DAILY [facility] Last Admin: 02/03/18 10:13 Dose: 40 mg Polyethylene Glycol (Miralax) 17 gm PO BID [facility] Last Admin: 02/03/18 17:55 Dose: 17 gm - Labs Labs: 02/02/18 07:30 02/03/18 07:30 PT 9.5 SECONDS (9.4-12.5) 02/01/18 21:12 INR 0.84 02/01/18 21:12 APTT 26.6 Seconds (25.1-36.5) 02/01/18 21:12 Attending/Attestation - Attestation I have personally seen and examined this patient.: Yes I have fully participated in the care of the patient.: Yes I have reviewed all pertinent clinical information, including history, physical exam and plan: Yes Notes (Text): This is an addendum to GI followup report dictated by the Communication Specialist. The patient was seen and evaluated earlier. Medical records, lab studies, imagings were reviewed. Last 24 hours events reviewed. Agreed with the above treatment plan as outlined in Communication Specialist 's notes with the addition of the following Tolerate the diet Feeling better History of pancreatitis This episode is most likely related to gastroparesis Patient would benefit from elective endoscopy evaluation Patient has been followed at the [facility] by Dr. Nguyen patient was advised to follow-up with him 02/03/18 19:25
[2018-02-03 08:34] VITALS: O2SAT 94
[2018-02-03] MEDS: POLYETHYLENE GLYCOL 3350 17 GM/Dose PACKET PO SCH ×2 (10:14→17:55)
[2018-02-03 12:02] LABS: HDL CHOLESTEROL 54 mg/dL (29-60)
[2018-02-03 12:18] LABS: LDL CHOLESTEROL 77 mg/dL (0-129)
[2018-02-03 14:12] VITALS: BP 139/81; PULSE 70; RESP 18; TEMP 98.4
--- NOTE | 2018-02-03 14:50 | CP.PCM.DIS ---
<Lindsey Hannon - Last Filed: 02/03/18 16:11> Provider - Provider Date of Admission: 02/01/18 21:51 Attending physician: Rosemary Christiansen MD Time Spent in preparation of Discharge (in minutes): 100 Hospital Course - Lab Results Lab Results: Most Recent Lab Values WBC 8.7 10^3/ul (4.5-11.0) 02/02/18 07:30 RBC 4.24 10^6/uL (3.5-6.1) 02/02/18 07:30 Hgb 11.0 g/dL (12.0-16.0) L 02/02/18 07:30 Hct 34.3 % (36.0-48.0) L 02/02/18 07:30 MCV 80.9 fl (80.0-105.0) 02/02/18 07:30 MCH 25.9 pg (25.0-35.0) 02/02/18 07:30 MCHC 32.1 g/dl (31.0-37.0) 02/02/18 07:30 RDW 15.4 % (11.5-14.5) H 02/02/18 07:30 Plt Count 222 10^3/uL (120.0-450.0) 02/02/18 07:30 MPV 9.2 fl (7.0-11.0) 02/02/18 07:30 Gran % 69.5 % (50.0-68.0) H 02/02/18 07:30 Lymph % (Auto) 21.1 % (22.0-35.0) L 02/02/18 07:30 Warren % (Auto) 7.0 % (1.0-6.0) H 02/02/18 07:30 Eos % (Auto) 2.3 % (1.5-5.0) 02/02/18 07:30 Baso % (Auto) 0.1 % (0.0-3.0) 02/02/18 07:30 Gran # 6.02 (1.4-6.5) 02/02/18 07:30 Lymph # (Auto) 1.8 (1.2-3.4) 02/02/18 07:30 Warren # (Auto) 0.6 (0.1-0.6) 02/02/18 07:30 Eos # (Auto) 0.2 (0.0-0.7) 02/02/18 07:30 Baso # (Auto) 0.01 K/mm3 (0.0-2.0) 02/02/18 07:30 PT 9.5 SECONDS (9.4-12.5) 02/01/18 21:12 INR 0.84 02/01/18 21:12 APTT 26.6 Seconds (25.1-36.5) 02/01/18 21:12 Sodium 141 mmol/L (132-148) 02/03/18 07:30 Potassium 4.5 mmol/L (3.6-5.0) 02/03/18 07:30 Chloride 106 mmol/L (98-107) 02/03/18 07:30 Carbon Dioxide 28 mmol/L (21-33) 02/03/18 07:30 Anion Gap 12 (10-20) 02/03/18 07:30 BUN 9 mg/dL (7-21) 02/03/18 07:30 Creatinine 0.6 mg/dl (0.7-1.2) L 02/03/18 07:30 Est GFR ( Amer) > 60 02/03/18 07:30 Est GFR (Non-Af Amer) > 60 02/03/18 07:30 POC Glucose (mg/dL) 124 mg/dL (65-110) H 02/03/18 11:14 Random Glucose 119 mg/dL (70-110) H 02/03/18 07:30 Calcium 9.2 mg/dL (8.4-10.5) 02/03/18 07:30 Phosphorus 3.3 mg/dL (2.5-4.5) 02/02/18 07:30 Magnesium 1.7 mg/dL (1.7-2.2) 02/02/18 07:30 Total Bilirubin 0.6 mg/dL (0.2-1.3) 02/03/18 07:30 AST 44 U/L (14-36) H D 02/03/18 07:30 ALT 82 U/L (7-56) H 02/03/18 07:30 Alkaline Phosphatase 143 U/L (38-126) H 02/03/18 07:30 Total Protein 7.0 g/dL (5.8-8.3) 02/03/18 07:30 Albumin 3.9 g/dL (3.0-4.8) 02/03/18 07:30 Globulin 3.1 gm/dL 02/03/18 07:30 Albumin/Globulin Ratio 1.3 (1.1-1.8) 02/03/18 07:30 Triglycerides 114 mg/dL (35-160) 02/03/18 11:25 Cholesterol 175 mg/dL (130-200) 02/03/18 11:25 LDL Cholesterol Direct 77 mg/dL (0-129) 02/03/18 11:25 HDL Cholesterol 54 mg/dL (29-60) 02/03/18 11:25 Lipase 209 U/L (23-300) 02/01/18 21:12 - Date & Time of H&P Date of H&P: 02/02/18 Time of H&P: 01:42 Discharge Plan - Follow Up Plan Condition: GOOD Disposition: HOME/ ROUTINE Instructions: Soft Diet, Chronic Pancreatitis (DC), Gastroparesis (Delayed Gastric Emptying) (DC) Additional Instructions: Please follow up with your primary medical doctor in 3-5 days. Please follow up with the buffet attendant as directed. Take medications as prescribed to you. Advance diet as tolerated as per buffet attendant instructions. If symptoms worsen, please return to the ED. <XuanSushil - Last Filed: 02/04/18 05:39> Provider - Provider Date of Admission: 02/01/18 21:51 Attending physician: Rosemary Christiansen MD Consults: Dr. Falcon - GI Time Spent in preparation of Discharge (in minutes): 100 Hospital Course - Lab Results Lab Results: Most Recent Lab Values WBC 8.7 10^3/ul (4.5-11.0) 02/02/18 07:30 RBC 4.24 10^6/uL (3.5-6.1) 02/02/18 07:30 Hgb 11.0 g/dL (12.0-16.0) L 02/02/18 07:30 Hct 34.3 % (36.0-48.0) L 02/02/18 07:30 MCV 80.9 fl (80.0-105.0) 02/02/18 07:30 MCH 25.9 pg (25.0-35.0) 02/02/18 07:30 MCHC 32.1 g/dl (31.0-37.0) 02/02/18 07:30 RDW 15.4 % (11.5-14.5) H 02/02/18 07:30 Plt Count 222 10^3/uL (120.0-450.0) 02/02/18 07:30 MPV 9.2 fl (7.0-11.0) 02/02/18 07:30 Gran % 69.5 % (50.0-68.0) H 02/02/18 07:30 Lymph % (Auto) 21.1 % (22.0-35.0) L 02/02/18 07:30 Warren % (Auto) 7.0 % (1.0-6.0) H 02/02/18 07:30 Eos % (Auto) 2.3 % (1.5-5.0) 02/02/18 07:30 Baso % (Auto) 0.1 % (0.0-3.0) 02/02/18 07:30 Gran # 6.02 (1.4-6.5) 02/02/18 07:30 Lymph # (Auto) 1.8 (1.2-3.4) 02/02/18 07:30 Warren # (Auto) 0.6 (0.1-0.6) 02/02/18 07:30 Eos # (Auto) 0.2 (0.0-0.7) 02/02/18 07:30 Baso # (Auto) 0.01 K/mm3 (0.0-2.0) 02/02/18 07:30 PT 9.5 SECONDS (9.4-12.5) 02/01/18 21:12 INR 0.84 02/01/18 21:12 APTT 26.6 Seconds (25.1-36.5) 02/01/18 21:12 Sodium 141 mmol/L (132-148) 02/03/18 07:30 Potassium 4.5 mmol/L (3.6-5.0) 02/03/18 07:30 Chloride 106 mmol/L (98-107) 02/03/18 07:30 Carbon Dioxide 28 mmol/L (21-33) 02/03/18 07:30 Anion Gap 12 (10-20) 02/03/18 07:30 BUN 9 mg/dL (7-21) 02/03/18 07:30 Creatinine 0.6 mg/dl (0.7-1.2) L 02/03/18 07:30 Est GFR ( Amer) > 60 02/03/18 07:30 Est GFR (Non-Af Amer) > 60 02/03/18 07:30 POC Glucose (mg/dL) 124 mg/dL (65-110) H 02/03/18 11:14 Random Glucose 119 mg/dL (70-110) H 02/03/18 07:30 Calcium 9.2 mg/dL (8.4-10.5) 02/03/18 07:30 Phosphorus 3.3 mg/dL (2.5-4.5) 02/02/18 07:30 Magnesium 1.7 mg/dL (1.7-2.2) 02/02/18 07:30 Total Bilirubin 0.6 mg/dL (0.2-1.3) 02/03/18 07:30 AST 44 U/L (14-36) H D 02/03/18 07:30 ALT 82 U/L (7-56) H 02/03/18 07:30 Alkaline Phosphatase 143 U/L (38-126) H 02/03/18 07:30 Total Protein 7.0 g/dL (5.8-8.3) 02/03/18 07:30 Albumin 3.9 g/dL (3.0-4.8) 02/03/18 07:30 Globulin 3.1 gm/dL 02/03/18 07:30 Albumin/Globulin Ratio 1.3 (1.1-1.8) 02/03/18 07:30 Triglycerides 114 mg/dL (35-160) 02/03/18 11:25 Cholesterol 175 mg/dL (130-200) 02/03/18 11:25 LDL Cholesterol Direct 77 mg/dL (0-129) 02/03/18 11:25 HDL Cholesterol 54 mg/dL (29-60) 02/03/18 11:25 Lipase 209 U/L (23-300) 02/01/18 21:12 - Hospital Course Hospital Course: 62 year old female, past medical history of chronic pancreatitis, DM2, HTN, asthma, and sciatica, presented to [facility] Emergency Department on 02/02/18 complaining of worsening, throbbing epigastric pain radiating to the back for the past 2 days with nausea, and non-bloody non- bilious vomiting. She had come to the emergency department the night before for a similar pain, and was sent home after receiving pain medication and intravneous fluids. CT of the abdomen showed pancreatic atrophy without evidence of acute pancreatitis. Patient returned to the ED on 02/02/18 and readmitted for worsening abdominal pain. Patient kept NPO, started on IVF, pain medication, anti-emetics, and GI prophylaxis. Gastroenterology was consulted. Their recommendations included a diagnosis of gastroparesis secondary to her history of DM2 as well as severe constipation seen on CT imaging. They started her on Miralax and gave a one time dose of dulcolax. Liquid diet was started and recommended that she follow up with GI outpatient. Patient placed on a sliding scale for DM2. HTN and HLD were on hold until she was able to tolerate medications by mouth. On 02/03/18, patient started on a diabetic diet and tolerated. Patient received protonix and SCDs, for GI and DVT prophylaxis, respectively. Discharge planning including medication reconciliation, outpatient follow up, and symptoms for return to ED discussed with patient in detail. Patient in understanding and able to repeat instructions back to provider. This is a brief summary of the patient's hospital stay. For a detailed records please refer to medical records. Discharge Exam - Head Exam Head Exam: ATRAUMATIC, NORMAL INSPECTION, NORMOCEPHALIC - Eye Exam Eye Exam: EOMI, PERRL - Respiratory Exam Respiratory Exam: NORMAL BREATHING PATTERN, UNREMARKABLE - Cardiovascular Exam Cardiovascular Exam: REGULAR RHYTHM, +S1, +S2. absent: Systolic Murmur - GI/Abdominal Exam GI & Abdominal Exam: Normal Bowel Sounds, Soft, Tenderness - Rectal Exam Rectal Exam: Deferred - Neurological Exam Neurological exam: Alert, Oriented x3 - Psychiatric Exam Psychiatric exam: Normal Affect, Normal Mood - Skin Skin Exam: Dry, Intact, Normal Color, Warm Discharge Plan - Follow Up Plan Patient education suggested?: Yes <Rosemary Christiansen - Last Filed: 02/04/18 15:02> Provider - Provider Date of Admission: 02/01/18 21:51 Attending physician: Rosemary Christiansen MD Hospital Course - Lab Results Lab Results: Most Recent Lab Values WBC 8.7 10^3/ul (4.5-11.0) 02/02/18 07:30 RBC 4.24 10^6/uL (3.5-6.1) 02/02/18 07:30 Hgb 11.0 g/dL (12.0-16.0) L 02/02/18 07:30 Hct 34.3 % (36.0-48.0) L 02/02/18 07:30 MCV 80.9 fl (80.0-105.0) 02/02/18 07:30 MCH 25.9 pg (25.0-35.0) 02/02/18 07:30 MCHC 32.1 g/dl (31.0-37.0) 02/02/18 07:30 RDW 15.4 % (11.5-14.5) H 02/02/18 07:30 Plt Count 222 10^3/uL (120.0-450.0) 02/02/18 07:30 MPV 9.2 fl (7.0-11.0) 02/02/18 07:30 Gran % 69.5 % (50.0-68.0) H 02/02/18 07:30 Lymph % (Auto) 21.1 % (22.0-35.0) L 02/02/18 07:30 Warren % (Auto) 7.0 % (1.0-6.0) H 02/02/18 07:30 Eos % (Auto) 2.3 % (1.5-5.0) 02/02/18 07:30 Baso % (Auto) 0.1 % (0.0-3.0) 02/02/18 07:30 Gran # 6.02 (1.4-6.5) 02/02/18 07:30 Lymph # (Auto) 1.8 (1.2-3.4) 02/02/18 07:30 Warren # (Auto) 0.6 (0.1-0.6) 02/02/18 07:30 Eos # (Auto) 0.2 (0.0-0.7) 02/02/18 07:30 Baso # (Auto) 0.01 K/mm3 (0.0-2.0) 02/02/18 07:30 PT 9.5 SECONDS (9.4-12.5) 02/01/18 21:12 INR 0.84 02/01/18 21:12 APTT 26.6 Seconds (25.1-36.5) 02/01/18 21:12 Sodium 141 mmol/L (132-148) 02/03/18 07:30 Potassium 4.5 mmol/L (3.6-5.0) 02/03/18 07:30 Chloride 106 mmol/L (98-107) 02/03/18 07:30 Carbon Dioxide 28 mmol/L (21-33) 02/03/18 07:30 Anion Gap 12 (10-20) 02/03/18 07:30 BUN 9 mg/dL (7-21) 02/03/18 07:30 Creatinine 0.6 mg/dl (0.7-1.2) L 02/03/18 07:30 Est GFR ( Amer) > 60 02/03/18 07:30 Est GFR (Non-Af Amer) > 60 02/03/18 07:30 POC Glucose (mg/dL) 144 mg/dL (65-110) H 02/03/18 16:39 Random Glucose 119 mg/dL (70-110) H 02/03/18 07:30 Calcium 9.2 mg/dL (8.4-10.5) 02/03/18 07:30 Phosphorus 3.3 mg/dL (2.5-4.5) 02/02/18 07:30 Magnesium 1.7 mg/dL (1.7-2.2) 02/02/18 07:30 Total Bilirubin 0.6 mg/dL (0.2-1.3) 02/03/18 07:30 AST 44 U/L (14-36) H D 02/03/18 07:30 ALT 82 U/L (7-56) H 02/03/18 07:30 Alkaline Phosphatase 143 U/L (38-126) H 02/03/18 07:30 Total Protein 7.0 g/dL (5.8-8.3) 02/03/18 07:30 Albumin 3.9 g/dL (3.0-4.8) 02/03/18 07:30 Globulin 3.1 gm/dL 02/03/18 07:30 Albumin/Globulin Ratio 1.3 (1.1-1.8) 02/03/18 07:30 Triglycerides 114 mg/dL (35-160) 02/03/18 11:25 Cholesterol 175 mg/dL (130-200) 02/03/18 11:25 LDL Cholesterol Direct 77 mg/dL (0-129) 02/03/18 11:25 HDL Cholesterol 54 mg/dL (29-60) 02/03/18 11:25 Lipase 209 U/L (23-300) 02/01/18 21:12 Attending/Attestation - Attestation I have personally seen and examined this patient.: Yes I have fully participated in the care of the patient.: Yes I have reviewed all pertinent clinical information, including history, physical exam and plan: Yes Notes (Text): 02/04/18 15:02 Attending note; Patient seen and examined with resident. Patient is a 62 year old female with PMH of chronic pancreatitis, hypertension, asthma, DM, sciatica presented with epigastric abdominal pain radiating to the back, nausea and vomiting. CT scan of the abdomen/pelvis shows pancreatic atrophy without evidence of pancreatitis. Patient admitted for chronic pancreatitis vs. gastroparesis. Advised small frequent meals to avoid gastroparesis. Currently tolerating diet. Currently tolerating soft diet. GI evaluation with Dr. Falcon appreciated. Discharged home today. Upon discharge the patient will follow-up with PMD .
== END 2018-02-03 20:44 | disposition home or self-care (01) ==
LOC: ED 19:50 → ERH 21:51 → 5RNO 23:48
PROVIDERS: ADMIT Internal Medicine; ATTEND Internal Medicine
DX: E11.43 Type 2 diabetes mellitus with diabetic autonomic (poly)neuropathy (principal); K31.84 Gastroparesis; K59.00 Constipation, unspecified; I10 Essential (primary) hypertension; E78.5 Hyperlipidemia, unspecified; J45.909 Unspecified asthma, uncomplicated; K21.9 Gastro-esophageal reflux disease without esophagitis; Z82.49 Family history of ischemic heart disease and other diseases of the circulatory system; Z82.5 Family history of asthma and other chronic lower respiratory diseases; Z87.891 Personal history of nicotine dependence; Z90.49 Acquired absence of other specified parts of digestive tract; Z87.19 Personal history of other diseases of the digestive system
CPT/HCPCS: 36415; 80053; 80061; 82948; 83690; 83735; 84100; 85025; 85610; 85730; 96361; 96374; 96375; 96376; 99283; C9113; G0378; J1170; J1885; J2405; J3480; J7030